=== PATIENT | female | born 1930 | race Caucasian/White ===

== ENCOUNTER 2017-02-16 17:27 | Inpatient (IN) | payer MEDICARE, BC ==
--- NOTE | 2017-02-16 17:38 | EDM.PDOC ---
ED HPI GENERAL MEDICAL PROBLEM - General Chief Complaint: Lower Extremity Injury/Pain Stated Complaint: right knee pain Time Seen by Provider: 02/16/17 17:30 Source of Information: Reports: Patient, EMS, EMS Notes Reviewed, Family (2 daughters, son), Old Records ([facility] chart/EMR) History Limitations: Reports: No Limitations - History of Present Illness INITIAL COMMENTS - FREE TEXT/NARRATIVE: The patient was brought to the emergency room via basic ambulance transfer secondary to severe knee pain, which occurred at home at about 15:00 hours this afternoon when she slipped off 1 step of her step stool at home. She has not been able to bear weight or ambulate since that time and did crawl to her own couch. Her daughter found her later this afternoon and did call the ambulance. The patient denies any head injury, headaches, visual changes, change in mental status, seizure activity, loss of consciousness, neck/back pain, paresthesias, neurological deficits, or other complaints or injuries. The patient denies any chest pain/pressure, heart flutter, dizziness, orthostasis, orthopnea, diaphoresis, paresthesias, recent decreased exercise tolerance, or any other anginal-type symptoms. No recent history of abdominal pain, heartburn, nausea, diarrhea, melena, gross hematochezia, or any food intolerance, including fatty foods, etc.. The patient also denies any recent fever, cough, wheezing, dyspnea , etc.. Onset: Today, Sudden Onset Date: 02/16/17 Onset Time: 15:00 Duration: Constant Location: Reports: Lower Extremity, Right. Denies: Head, Face, Neck, Chest, Abdomen, Back, Pelvis, Upper Extremity, Left, Upper Extremity, Right, Lower Extremity, Left, Generalized, Radiates to Quality: Reports: Sharp, Stabbing Severity: Severe Improves with: Reports: Rest Worsens with: Reports: Movement Context: Reports: Trauma (As above) Associated Symptoms: Denies: Confusion, Chest Pain, Cough, Diaphoresis, Fever/ Chills, Loss of Appetite, Malaise, Nausea/Vomiting, Seizure, Shortness of Breath , Syncope, Weakness Treatments HVAC JOURNEYMAN: Reports: Other (see below) (None) Right Knee Pain Score (Numeric/FACES): 8 - Related Data Allergies Allergy/AdvReac Type Severity Reaction Status Date / Time Penicillins Allergy Cannot Verified 10/06/14 09:26 Remember Home Meds: Home Meds Ascorbic Acid [Vitamin C] 1,000 mg PO 1200 02/16/17 [History] Aspirin [Low Dose Aspirin EC] 81 mg PO 1800 02/16/17 [History] Atenolol 25 mg PO DAILY 02/16/17 [History] Calcium Carbonate/Vitamin D3 [Calcium 600-Vit D3 500 Softgel] 1 each PO DAILY [History] Cholecalciferol (Vitamin D3) [Vitamin D3] 3,000 unit PO 1200 02/16/17 [History] Fenofibrate,Micronized [Fenofibrate] 134 mg PO DAILY 02/16/17 [History] Levothyroxine [Synthroid] 100 mcg PO ACBREAKFAST 02/16/17 [History] Pravastatin [Pravachol] 20 mg PO DAILY 02/16/17 [History] Sertraline [Zoloft] 50 mg PO DAILY 02/16/17 [History] Vitamin E 400 unit PO 1200 02/16/17 [History] amLODIPine [Norvasc] 5 mg PO DAILY 02/16/17 [History] Past Medical History HEENT History: Reports: Allergic Rhinitis, Cataract, Impaired Vision, Other ( See Below). Denies: Glaucoma, Hard of Hearing, Macular Degeneration, Retinal Detachment Other HEENT History: Patient wears glasses, seasonal allergies, bilateral cataracts with no surgery to this point Cardiovascular History: Reports: Arrhythmia, CAD, Heart Murmur, High Cholesterol , Hypertension, Pacemaker, Other (See Below). 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 Mild coronary artery disease with no previous history of AR, only mild bilateral carotid occlusive disease, mild aortic valve stenosis and mitral valve insufficiency by clinical exam, dyslipidemia Respiratory History: Reports: COPD, Intubation, Previous, Other (See Below). Denies: Asthma, PE, Pneumothorax, Sleep Apnea Other Respiratory History: COPD by chest x-ray Gastrointestinal History: Reports: None. Denies: Bowel Obstruction, Celiac Disease, Cholelithiasis, Chronic Constipation, Chronic Diarrhea, Fecal Incontinence, Gastritis, GERD, GI Bleed, Inflammatory Bowel Disease, Irritable Bowel Syndrome, PUD Genitourinary History: Reports: None. Denies: Acute Renal Failure, Chronic Renal Insuffiency, Renal Calculus, STD, Urinary Incontinence, UTI, Recurrent AGENTS' RECORDS CLERK History: Reports: Dysfunctional Uterine Bleeding, Fibroids, . Denies: Endometriosis, Spontaneous : 5 Para: 5 (Full term without complications during pregnancies or deliveries) LMP (Approximate): Menopausal (Surgical menopause) Musculoskeletal History: Reports: Arthritis, Back Pain, Chronic, Neck Pain, Chronic, Osteoarthritis, Osteoporosis, Other (See Below). Denies: Amputation, Fracture, Gout, RA, SLE Other Musculoskeletal History: Right-sided sciatica Neurological History: Reports: None. Denies: Alzheimers Disease, Cerebral Aneurysms, Concussion, CVA, Headaches, Chronic, Head Trauma, Migraines, MS, Neuropathy, Peripheral, Parkinson's, Seizure, TIA Psychiatric History: Reports: Anxiety, Depression. Denies: Abuse, Victim of, ADD, ADHD, Addiction, Psych Hospitalization(s), PTSD, Suicide Attempt, Suicidal Ideation Endocrine/Metabolic History: Reports: Hypothyroidism, Osteoporosis. Denies: Diabetes, Type I, Diabetes, Type II, IDDM Hematologic History: Reports: None. Denies: Anemia, Blood Transfusion(s), Iron Deficiency Immunologic History: Reports: None. Denies: AIDS, HIV, SLE Oncologic (Cancer) History: Reports: None. Denies: Basal Cell Carcinoma, Hodgkin's Lymphoma, Leukemia, Lymphoma, Malignant Melanoma, Non-Hodgkin's Lymphoma, Squamous Cell Carcinoma Dermatologic History: Reports: None. Denies: Eczema, Psoriasis - Infectious Disease History Infectious Disease History: Reports: Chicken Pox, Measles. Denies: C-Difficile , Meningitis, Mononucleosis, MRSA, Mumps, Pertussis (Whooping Cough), Rheumatic Fever, Rubella, Scarlet Fever, Shingles, VRE - Past Surgical History Head Surgeries/Procedures: Reports: None HEENT Surgical History: Reports: None, Oral Surgery, Other (See Below). Denies : Adenoidectomy, Cataract Surgery, Eye Surgery, Laser Surgery, LASIK, Myringotomy w Tube(s), Naso-Sinus Surgery, Tonsillectomy Other HEENT Surgeries/Procedures: [place] teeth extraction 4 in her 20s Cardiovascular Surgical History: Reports: Pacer, Other (See Below). Denies: Coronary Artery Bypass, Valve Replacement, Varicose, Vascular Surgery Other Cardiovascular Surgeries/Procedures: Show pacemaker placement in February 1999 with subsequent pacemaker replacements on 04/30/06 and then in November 2014 Respiratory Surgical History: Reports: None. Denies: Thoracentesis GI Surgical History: Reports: None. Denies: Appendectomy, Cholecystectomy, Colonoscopy, EGD, Hernia, Abdominal, Hernia, Inguinal, Hernia Repair/Other Female Surgical History: Reports: Hysterectomy, Salpingo-Oophorectomy, Other (See Below). Denies: Section, D&C, Tubal Ligation Other Female Surgeries/Procedures: Complete hysterectomy including bilateral salpingo-oophorectomy in her 40s secondary to uterine fibroids and dysfunctional uterine bleeding Endocrine Surgical History: Reports: None. Denies: Thyroid Biopsy Neurological Surgical History: Reports: None. Denies: C-Spine, Discectomy, Laminectomy, Lumbar Spine, Sacral Spine, Spinal Fusion, Vertebroplasty Musculoskeletal Surgical History: Reports: None. Denies: Arthroscopic Knee, Arthroscopic Procedure, Carpal Tunnel, Ganglion Cyst, Joint Replacement, ORIF, Shoulder Surgery Oncologic Surgical History: Reports: None Dermatological Surgical History: Reports: None - Past Imaging History Past Imaging History: Reports: Carotid US (Carotid artery Doppler studies last done 12/23/12 with previous evaluations and 12/09/09 and 12/21/05), CAT Scan (CT of the brain on 12/23/12, CT of the thoracic and lumbar spines on 09/07/06) Social & Family History - Family History HEENT: Reports: None. Denies: Cataract, Glaucoma, Macular Degeneration, Retinal Detachment Cardiac: Reports: Bypass, CAD, Congenital Septal Defect, Heart Failure, High Cholesterol, Hypertension, AR, Other (See Below). Denies: Afib, AICD, Aneurysm , Arrhythmia, Blood Clots/VTE/DVT, Pacemaker, PVD/COD, Syncope Other Cardiac Family History: 2 daughters with hypertension and hyperlipidemia, mother also with hypertension, brother with CABG and AR in his 70s, mother with fatal AR at age 69, brother with PTCA/stent and AR in his late 60s, son from heart complications/cardiomegaly from his Down syndrome at age 26 Respiratory: Reports: Asthma, COPD, Other (See Below). Denies: PE, Pneumothorax , Sleep Apnea Other Respiratory Family Hisory: Asthma in father and brother, sister with COPD with history of tobacco use, son with pulmonary fibrosis with no history of tobacco use GI: Denies: Celiac Disease, Cholelithiasis, Colon Polyps, GERD, GI bleed, Inflammatory Bowel Disease, Irritable Bowel Syndrome, PUD : Reports: Dialysis, Renal Disease/Insufficiency, Other (See Below). Denies: Renal Calculus Other Family History: Sister with fatal diabetic nephropathy requiring dialysis in her 80s, another sister with fatal renal disease in her 80s OBGYN: Reports: None. Denies: Endometriosis, Recurrent Spontaneous Musculoskeletal: Reports: None. Denies: Gout, RA, SLE Neurological: Reports: CVA, Other (See Below). Denies: Alzheimers Disease, Cerebral Aneurysms, Dementia, Migraines, MS, Parkinson's, Seizure, TIA Other Neurological Family History: Mother with multiple recurrent CVAs Psychiatric: Reports: None. Denies: Abuse, Victim of, ADD, ADHD, Anxiety, Autism, Depression, Psych Hospitalization(s), PTSD, Suicide Attempt Endocrine/Metabolic: Reports: Diabetes, type II, Hypothyroidism, IDDM, Other ( See Below) Other Endocrine/Metabolic Family History: Diabetes mellitus and hypothyroidism in 2 daughters and granddaughter, IDDM in sister with renal failure as above Hematologic: Reports: None. Denies: Anemia, B12 Deficiency, SLE Immunologic: Reports: None. Denies: AIDS, HIV, SLE Dermatologic: Reports: None. Denies: Eczema, Psoriasis Oncologic: Reports: Liver, Skin, Other (See Below). Denies: Colon, Leukemia, Uterine Other Oncologic Family History: Sister with fatal hepatic cancer at age 87 brother with melanoma Other Family History: Son with Down syndrome as above - Tobacco Use Smoking Status *Q: Never Smoker - Alcohol Use Days Per Week of Alcohol Use: 0 - Recreational Drug Use Recreational Drug Use: No Review of Systems - Review of Systems Review Of Systems: See Below Constitutional: Reports: No Symptoms. Denies: Chills, Fever, Weakness Eyes: Reports: Glasses. Denies: Blurred Vision, Vision Change Ears: Reports: No Symptoms. Denies: Dizziness, Pain, Tinnitus Nose: Reports: No Symptoms Mouth/Throat: Reports: No Symptoms. Denies: Loose Teeth Respiratory: Reports: No Symptoms. Denies: Shortness of Breath, Wheezing, Pleuritic Chest Pain, Cough Cardiovascular: Reports: No Symptoms. Denies: Chest Pain, Edema, Irregular Heart Rate, Lightheadedness, Palpitations, Syncope GI/Abdominal: Reports: No Symptoms. Denies: Abdominal Pain, Bloody Stool, Constipation, Diarrhea, Nausea, Vomiting Genitourinary: Reports: No Symptoms. Denies: Dysuria, Hematuria, Incontinence, Painful Urination, Vaginal Bleeding Musculoskeletal: Reports: Joint Pain (Right knee), Joint Swelling (Right knee). Denies: Neck Pain, Shoulder Pain, Arm Pain, Back Pain, Hand Pain, Leg Pain, Foot Pain, Muscle Pain, Muscle Stiffness Skin: Reports: No Symptoms. Denies: Diaphoresis, Bruising Neurological: Reports: Difficulty Walking (Secondary to knee pain). Denies: Confusion, Dizziness, Headache, Numbness, Paresthesia, Seizure, Syncope, Tingling, Weakness, Change in Speech Psychiatric: Reports: No Symptoms. Denies: Confusion, Depression, Anxiety, Agitation, Hallucinations ED EXAM, GENERAL - Physical Exam Exam: See Below Exam Limited By: No Limitations General Appearance: Alert, WD/WN, No Apparent Distress Eye Exam: Bilateral Eye: EOMI, Normal Inspection (No nystagmus; glasses), PERRL Ears: Normal External Exam, Normal Canal, Hearing Grossly Normal, Normal TMs Nose: Normal Inspection, Normal Mucosa, No Blood Throat/Mouth: Normal Inspection, Normal Lips, Normal Teeth, Normal Gums, Normal Oropharynx, Normal Voice, No Airway Compromise. No: Dysphagia, Perioral Cyanosis Head: Atraumatic, Normocephalic. No: Facial Swelling, Facial Tenderness, Sinus Tenderness Neck: Supple, Non-Tender, Full Range of Motion, Carotid Bruit (Mild Bilateral carotid bruits versus transmitted heart sounds). No: Lymphadenopathy (L), Lymphadenopathy (R), Thyromegaly Respiratory/Chest: No Respiratory Distress, Lungs Clear, Normal Breath Sounds, No Accessory Muscle Use, Chest Non-Tender. No: Pleural Rub, Retractions Cardiovascular: Normal Peripheral Pulses, Regular Rate, Rhythm, No Edema, No Gallop, No JVD, No Rub, Systolic Murmur (Mild 1/6 ADY of the aortic and mitral valves). No: Gallop/S3, Gallop/S4, Friction Rub Peripheral Pulses: 2+: Radial (L), Radial (R), Dorsalis Pedis (L), Dorsalis Pedis (R) GI/Abdominal: Normal Bowel Sounds, Soft, Non-Tender, No Organomegaly, No Distention, No Abnormal Bruit, No Mass, Pelvis Stable, Other (Obese, vertical midline incision from previous hysterectomy). No: Guarding (Female) Exam: Deferred Rectal (Female) Exam: Deferred Back Exam: Normal Inspection, Full Range of Motion. No: CVA Tenderness (L), CVA Tenderness (R), Muscle Spasm Extremities: No Pedal Edema, Normal Capillary Refill, Joint Swelling (Mild right knee effusion), Leg Pain (Severe left knee pain by palpation over the patella with no crepitation or deformity, secondary chest discomfort Lorin's, Alfreda's, and pivot shift could not be performed at no direct knee instability ), Limited Range of Motion (Secondary to knee pain). No: Charisse's Sign, Increased Warmth Neurological: Alert, Oriented, CN II-XII Intact, Normal Cognition, Normal Gait, Normal Reflexes (Negative Babinski's), No Motor/Sensory Deficits Psychiatric: Normal Affect, Normal Mood Skin Exam: Warm, Dry, Intact, Normal Color, No Rash. No: Diaphoretic, Ecchymosis, Wound/Incision Lymphatic: No Adenopathy Course - Vital Signs Last Recorded V/S: Last Vital Signs Temp 36.8 C 02/16/17 17:28 Pulse 67 02/16/17 17:28 Resp 20 02/16/17 17:28 BP 170/84 H 02/16/17 17:28 Pulse Ox 95 02/16/17 17:28 Vital Signs - 24 hr 02/16/17 17:28 Temperature [ 36.8 C Oral] Pulse, 67 Peripheral [ Left Pulse Oximetry] Respiratory 20 Rate Blood Pressure 170/84 H [Left Upper Arm ] O2 Sat by Pulse 95 Oximetry - Orders/Labs/Meds Orders: Active Orders 24 hr Category Date Time Status Peripheral IV Care [RC] . DIRECTED Care 02/16/17 17:43 Active Knee 3V Rt [CR] Stat Exams 02/16/17 17:38 Taken Sodium Chloride 0.9% [Saline Flush] Med 02/16/17 17:43 Active 10 ml FLUSH ASDIRECTED PRN Obtain Past Medical Record [OM.PC] Routine Oth 02/16/17 17:38 Active Peripheral IV Insertion Adult [OM.PC] Routine Oth 02/16/17 17:43 Ordered Medication Orders Sodium Chloride (Saline Flush) 10 ml FLUSH ASDIRECTED PRN PRN Reason: Keep Vein Open Labs: None Meds: Medications Generic Name Dose Route Start Last Admin Trade Name Freq PRN Reason Stop Dose Admin Sodium Chloride 10 ml 02/16/17 17:43 Saline Flush FLUSH ASDIRECTED PRN Keep Vein Open Discontinued Medications Generic Name Dose Route Start Last Admin Trade Name Freq PRN Reason Stop Dose Admin Hydromorphone HCl 1 mg 02/16/17 17:42 02/16/17 17:51 Dilaudid IVPUSH 02/16/17 17:43 1 mg ONETIME ONE Administration Ondansetron HCl 4 mg 02/16/17 17:42 02/16/17 17:53 Zofran IVPUSH 02/16/17 17:43 4 mg ONETIME ONE Administration - Radiology Interpretation Free Text/Narrative:: X-rays of the right knee, 3 views, shows evidence of possible posterior lateral tibial plateau fractures with additional possible medial plateau fracture with findings confirmed by means of telephone consultation with Dr. Peña, radiologist at [facility] at 18:30 p.m. Departure - Departure Time of Disposition: 19:35 Disposition: Admitted As Inpatient 65 Condition: Good Clinical Impression: Tibial plateau fracture, right, Hypertension, Osteoarthritis, COPD (chronic obstructive pulmonary disease), Coronary artery disease, Allergic rhinitis, Mixed anxiety depressive disorder - Discharge Information - Problem List & Annotations (1) Tibial plateau fracture, right SNOMED Code(s): 461716541 Code(s): S82.141A - DISPLACED BICONDYLAR FRACTURE OF RIGHT TIBIA, INIT Status: Acute Priority: High Current Visit: Yes Onset Date: 02/16/17 Annotation/Comment:: IV Dilaudid given in the emergency room with overall good control of her symptoms. Patient placed in a knee immobilizer. Per recommendations from the radiologist CT scan of the knee will be conducted in the a.m. Patient is not a candidate for an MRI secondary to her pacemaker. Orthopedic consultation as needed. Note that patient will have difficulty taking care of herself at home with consideration of swing bed placement after inpatient care for pain control. Physical therapy and occupational therapy in the a.m. Qualifiers: Encounter type: initial encounter Fracture type: closed Qualified Code(s) : S82.141A - Displaced bicondylar fracture of right tibia, initial encounter for closed fracture (2) Hypertension SNOMED Code(s): 91934933 Code(s): I10 - ESSENTIAL (PRIMARY) HYPERTENSION Status: Chronic Priority : Medium Current Visit: Yes Annotation/Comment:: Stable by history. Observe blood pressures closely with somewhat elevated blood pressures in the emergency room likely secondary to pain. Medication adjustments depending on her clinical course. Qualifiers: Hypertension type: essential hypertension Qualified Code(s): I10 - Essential (primary) hypertension (3) Coronary artery disease SNOMED Code(s): 76974315 Code(s): I25.10 - ATHSCL HEART DISEASE OF [place] CORONARY ARTERY W/O ANG PCTRS Status: Chronic Priority: Medium Current Visit: Yes Annotation/ Comment:: No recent chest pain or anginal type symptoms. Note status post previous third-degree block with multiple pacemaker placements as above Qualifiers: Coronary Disease-Associated Artery/Lesion type: [place] artery [place] vs. transplanted heart: [place] heart Associated angina: without angina Qualified Code(s): I25.10 - Atherosclerotic heart disease of [place] coronary artery without angina pectoris (4) COPD (chronic obstructive pulmonary disease) SNOMED Code(s): 18341143 Code(s): J44.9 - CHRONIC OBSTRUCTIVE PULMONARY DISEASE, UNSPECIFIED Status : Chronic Priority: Medium Current Visit: Yes Annotation/Comment:: Stable by history with no recent fever or bronchitic type symptoms Qualifiers: COPD type: emphysema Emphysema type: panlobular Qualified Code(s): J43.1 - Panlobular emphysema (5) Allergic rhinitis SNOMED Code(s): 20046100 Code(s): J30.9 - ALLERGIC RHINITIS, UNSPECIFIED Status: Chronic Priority : Medium Current Visit: Yes Annotation/Comment:: Stable by history Qualifiers: Chronicity: chronic Allergic rhinitis trigger: unspecified Allergic rhinitis seasonality: non-seasonal Qualified Code(s): J30.89 - Other allergic rhinitis (6) Osteoarthritis SNOMED Code(s): 840604342 Code(s): M19.90 - UNSPECIFIED OSTEOARTHRITIS, UNSPECIFIED SITE Status: Chronic Priority: Medium Current Visit: Yes Annotation/Comment:: Otherwise stable by history Qualifiers: Osteoarthritis location: multiple joints Osteoarthritis type: primary Qualified Code(s): M15.0 - Primary generalized (osteo)arthritis (7) Mixed anxiety depressive disorder SNOMED Code(s): 286049920 Code(s): F41.8 - OTHER SPECIFIED ANXIETY DISORDERS Status: Chronic Priority: Medium Current Visit: Yes Annotation/Comment:: Stable by history - Problem List Review Problem List Initiated/Reviewed/Updated: Yes - My Orders Last 24 Hours: My Active Orders 02/16/17 17:38 Knee 3V Rt [CR] Stat Obtain Past Medical Record [OM.PC] Routine 02/16/17 17:43 Peripheral IV Care [RC] . DIRECTED Sodium Chloride 0.9% [Saline Flush] 10 ml FLUSH ASDIRECTED PRN Peripheral IV Insertion Adult [OM.PC] Routine - Assessment/Plan Admission H&P: Please use this note as an admission H&P Last 24 Hours: My Active Orders 02/16/17 17:38 Knee 3V Rt [CR] Stat Obtain Past Medical Record [OM.PC] Routine 02/16/17 17:43 Peripheral IV Care [RC] . DIRECTED Sodium Chloride 0.9% [Saline Flush] 10 ml FLUSH ASDIRECTED PRN Peripheral IV Insertion Adult [OM.PC] Routine Assessment:: As above Plan: As above. Extensive precautions were given to the patient and her family, who are in agreement with the treatment plan. The patient will require about 3-4 days of inpatient/acute care secondary to multiple health problems as above. [facility] assumes care in the a.m. with additional blood work to be conducted at that time
[2017-02-16] MEDS ORDERED: HYDROmorphone 1 MG/ML Syringe IVPUSH ONE (17:42)
[2017-02-16] MEDS ORDERED: Ondansetron 4 MG/2 ML SDV IVPUSH ONE (17:42)
[2017-02-16] MEDS ORDERED: Albuterol/Ipratropium 3.0-0.5 MG/3 ML Neb Soln NEB PRN (20:49)
[2017-02-16] MEDS ORDERED: Albuterol 0.083% 2.5 MG/3 ML Neb Soln INH PRN (20:49)
[2017-02-16] MEDS ORDERED: Sodium Chloride 0.9% 10 ML Syringe FLUSH PRN (20:49)
[2017-02-16] MEDS: traMADol 50 MG Tab PO PRN (22:19)
[2017-02-16] MEDS: Acetaminophen 325 MG Tab PO PRN (22:20)
[2017-02-16] MEDS ORDERED: Ondansetron 4 MG/2 ML SDV IVPUSH PRN (23:40)
[2017-02-17] MEDS: HYDROmorphone 1 MG/ML Syringe IVPUSH PRN ×2 (03:23→09:23)
[2017-02-17] MEDS: Acetaminophen 325 MG Tab PO PRN ×3 (06:04→19:33)
[2017-02-17] MEDS: traMADol 50 MG Tab PO PRN ×3 (06:05→19:34)
[2017-02-17] MEDS: Levothyroxine 100 MCG Tab PO SCH (07:37)
[2017-02-17] MEDS ORDERED: Atenolol 25 MG Tab PO SCH (08:00)
[2017-02-17] MEDS ORDERED: Fenofibrate,Micronized 134 MG Cap PO SCH (08:00)
[2017-02-17] MEDS ORDERED: Pravastatin 20 MG Tab PO SCH (08:00)
[2017-02-17] MEDS ORDERED: Sertraline 50 MG Tab PO SCH (08:00)
[2017-02-17] MEDS ORDERED: amLODIPine 5 MG Tab PO SCH (08:00)
[2017-02-17] MEDS: Calcium Carbonate/Vitamin D3 1500 MG-400 Units Tab PO SCH (08:14)
[2017-02-17] MEDS: Sodium Chloride 0.9% 10 ML Syringe FLUSH PRN ×4 (08:16→21:17)
[2017-02-17] MEDS: Cholecalciferol (Vitamin D3) 1,000 Unit Tab PO SCH (11:51)
[2017-02-17] MEDS ORDERED: Pantoprazole 40 MG Vial IVPUSH ONE (13:30)
[2017-02-17] MEDS ORDERED: Enalaprilat 1.25 MG/ML SDV IVPUSH ONE ×2 (13:30→16:45)
[2017-02-17] MEDS ORDERED: fentaNYL 100 MCG/2 ML SDV IVPUSH PRN (14:00)
[2017-02-17] MEDS: Ketorolac 15 MG/ML SDV IVPUSH SCH ×2 (14:07→21:16)
--- NOTE | 2017-02-17 16:15 | PCM.PN ---
- General Info Date of Service: 02/17/17 Functional Status: Reports: Other (pain in right knee) - Review of Systems General: Reports: No Symptoms HEENT: Reports: No Symptoms Pulmonary: Reports: No Symptoms Cardiovascular: Reports: No Symptoms Gastrointestinal: Reports: No Symptoms Genitourinary: Reports: No Symptoms Musculoskeletal: Reports: Leg Pain (right), Joint Pain (right knee) Skin: Reports: No Symptoms Neurological: Reports: No Symptoms Psychiatric: Reports: Anxiety - Patient Data Vitals - Most Recent: Last Vital Signs Temp 96 F 02/17/17 12:00 Pulse 61 02/17/17 12:00 Resp 22 H 02/17/17 06:05 BP 200/78 H 02/17/17 14:08 Pulse Ox 95 02/17/17 12:00 Weight - Most Recent: 130 lb I&O - Last 24 Hours: Intake & Output 02/17/17 02/17/17 02/17/17 06:59 14:59 22:59 Intake Total 1100 Output Total 550 Balance -550 1100 Lab Results Last 24 Hours: Laboratory Results - last 24 hr 02/17/17 02/17/17 Range/Units 07:10 07:10 WBC 12.8 H (4.0-10.2) K/uL RBC 4.72 (3.77-5.09) M/uL Hgb 13.9 (11.7-15.5) g/dL Hct 43.0 (34.0-46.0) % MCV 91.1 (84.0-98.0) fL MCH 29.4 (28.2-33.3) pg MCHC 32.3 (31.7-36.0) g/dL RDW 13.8 (11.2-14.1) % Plt Count 265 (150-350) K/uL Neut % (Auto) 73.5 (45.0-80.0) % Lymph % (Auto) 16.2 (10.0-50.0) % [place] % (Auto) 9.5 (2.0-14.0) % Eos % (Auto) 0.6 (0.0-5.0) % Baso % (Auto) 0.2 (0.0-2.0) % Neut # (Auto) 9.42 H (1.40-7.00) K/uL Lymph # (Auto) 2.08 (0.50-3.50) K/uL [place] # (Auto) 1.22 H (0.00-1.00) K/uL Eos # (Auto) 0.08 (0.00-0.50) K/uL Baso # (Auto) 0.02 (0.00-0.20) K/uL Sodium 137 (136-145) mmol/L Potassium 4.4 (3.5-5.1) mmol/L Chloride 101 (98-107) mmol/L Carbon Dioxide 28.1 (21.0-32.0) mmol/L BUN 35 H (7-18) mg/dL Creatinine 1.35 H (0.51-1.17) mg/dL Est Cr Clr Drug Dosing 21.09 mL/min Estimated GFR (MDRD) 37 mL/min Glucose 133 H (74-106) mg/dL Uric Acid 4.8 (2.6-7.2) mg/dL Calcium 9.8 (8.5-10.1) mg/dL Magnesium 1.7 L (1.8-2.4) mg/dL Total Bilirubin 0.4 (0.2-1.0) mg/dL AST 24 (15-37) U/L ALT 24 (12-78) U/L Alkaline Phosphatase 43 L (46-116) IU/L C-Reactive Protein 2.0 H (<=0.9) mg/dL Total Protein 7.7 (6.4-8.2) g/dL Albumin 3.7 (3.4-5.0) g/dL Med Orders - Current: Current Medications Acetaminophen (Tylenol) 650 mg PO Q4H PRN PRN Reason: Pain (Mild 1-3)/fever Last Admin: 02/17/17 13:37 Dose: 650 mg Albuterol (Proventil Neb Soln) 2.5 mg INH Q2H PRN PRN Reason: SHORTNESS OF BREATH Albuterol/Ipratropium (Duoneb 3.0-0.5 Mg/3 Ml) 3 ml NEB Q4HRRT PRN PRN Reason: Dyspnea Amlodipine Besylate (Norvasc) 5 mg PO DAILY [facility] Last Admin: 02/17/17 08:15 Dose: 5 mg Atenolol (Tenormin) 25 mg PO DAILY [facility] Last Admin: 02/17/17 08:15 Dose: 25 mg Calcium Carbonate (Caltrate 600+D 1500 Mg-400 Units) 1 tab PO DAILY [facility] Last Admin: 02/17/17 08:14 Dose: 1 tab Cholecalciferol (Vitamin D3) 3,000 units PO DAILY@1200 [facility] Last Admin: 02/17/17 11:51 Dose: 3,000 units Fentanyl (Sublimaze) 25 mcg IVPUSH Q4H PRN PRN Reason: Pain Ketorolac Tromethamine (Toradol) 15 mg IVPUSH Q8H [facility] Stop: 02/22/17 13:20 Last Admin: 02/17/17 14:07 Dose: 15 mg Levothyroxine Sodium (Synthroid) 100 mcg PO ACBREAKFAST [facility] Last Admin: 02/17/17 07:37 Dose: 100 mcg Ondansetron HCl (Zofran) 4 mg IVPUSH Q6H PRN PRN Reason: Nausea/Vomiting Last Admin: 02/17/17 09:23 Dose: 4 mg Pantoprazole Sodium (Protonix Iv) 40 mg IVPUSH DAILY [facility] Sodium Chloride (Saline Flush) 10 ml FLUSH ASDIRECTED PRN PRN Reason: Keep Vein Open Last Admin: 02/17/17 14:14 Dose: 10 ml Sodium Chloride (Saline Flush) 10 ml FLUSH Q12HR [facility] Temazepam (Restoril) 15 mg PO BEDTIME PRN PRN Reason: Insomnia Tramadol HCl (Ultram) 50 mg PO Q6H PRN PRN Reason: Pain (moderate 4-6) Last Admin: 02/17/17 13:36 Dose: 50 mg Discontinued Medications Aspirin (Halfprin) 81 mg PO 1800 [facility] Enalaprilat (Vasotec Iv) 0.625 mg IVPUSH ONETIME ONE Stop: 02/17/17 13:31 Last Admin: 02/17/17 14:08 Dose: 0.625 mg Fenofibrate (Fenofibrate) 134 mg PO DAILY [facility] Last Admin: 02/17/17 08:15 Dose: 134 mg Hydromorphone HCl (Dilaudid) 1 mg IVPUSH ONETIME ONE Stop: 02/16/17 17:43 Last Admin: 02/16/17 17:51 Dose: 1 mg Hydromorphone HCl (Dilaudid) 1 mg IVPUSH Q6H PRN PRN Reason: Pain (severe 7-10) Last Admin: 02/17/17 09:23 Dose: 1 mg Ondansetron HCl (Zofran) 4 mg IVPUSH ONETIME ONE Stop: 02/16/17 17:43 Last Admin: 02/16/17 17:53 Dose: 4 mg Pantoprazole Sodium (Protonix Iv) 40 mg IVPUSH ONETIME ONE Stop: 02/17/17 13:31 Last Admin: 02/17/17 14:08 Dose: 40 mg Pravastatin Sodium (Pravachol) 20 mg PO DAILY [facility] Last Admin: 02/17/17 08:15 Dose: 20 mg Sertraline HCl (Zoloft) 50 mg PO DAILY [facility] Last Admin: 02/17/17 08:15 Dose: 50 mg Sodium Chloride (Saline Flush) 10 ml FLUSH Q12H PRN PRN Reason: Keep Vein Open - Exam General: Alert, Cooperative, Mild Distress HEENT: Mucous Membr. Moist/[place] Neck: Trachea Midline, No JVD Lungs: Normal Respiratory Effort Cardiovascular: Regular Rate, Regular Rhythm GI/Abdominal Exam: Soft, Non-Tender (Female) Exam: Deferred Back Exam: Normal Inspection, Other (kyphosis) Extremities: No Pedal Edema, Leg Pain (right) Skin: Warm, Dry, Intact Neurological: No New Focal Deficit Psy/Mental Status: Alert, Normal Affect, Normal Mood - Problem List & Annotations (1) Tibial plateau fracture, right SNOMED Code(s): 566017032 Code(s): S82.141A - DISPLACED BICONDYLAR FRACTURE OF RIGHT TIBIA, INIT Status: Acute Priority: High Current Visit: Yes Onset Date: 02/16/17 Qualifiers: Encounter type: initial encounter Fracture type: closed Qualified Code(s) : S82.141A - Displaced bicondylar fracture of right tibia, initial encounter for closed fracture Annotation/Comment:: IV Dilaudid given in the emergency room with overall good control of her symptoms. Patient placed in a knee immobilizer. Per recommendations from the radiologist CT scan of the knee will be conducted in the a.m. Patient is not a candidate for an MRI secondary to her pacemaker. Orthopedic consultation as needed. Note that patient will have difficulty taking care of herself at home with consideration of swing bed placement after inpatient care for pain control. Physical therapy and occupational therapy in the a.m. (2) COPD (chronic obstructive pulmonary disease) SNOMED Code(s): 73035501 Code(s): J44.9 - CHRONIC OBSTRUCTIVE PULMONARY DISEASE, UNSPECIFIED Status : Chronic Priority: Medium Current Visit: Yes Qualifiers: COPD type: emphysema Emphysema type: panlobular Qualified Code(s): J43.1 - Panlobular emphysema Annotation/Comment:: Stable by history with no recent fever or bronchitic type symptoms (3) Coronary artery disease SNOMED Code(s): 41602817 Code(s): I25.10 - ATHSCL HEART DISEASE OF [place] CORONARY ARTERY W/O ANG PCTRS Status: Chronic Priority: Medium Current Visit: Yes Qualifiers: Coronary Disease-Associated Artery/Lesion type: [place] artery [place] vs. transplanted heart: [place] heart Associated angina: without angina Qualified Code(s): I25.10 - Atherosclerotic heart disease of [place] coronary artery without angina pectoris Annotation/Comment:: No recent chest pain or anginal type symptoms. 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 Observe blood pressures closely with somewhat elevated blood pressures in the emergency room likely secondary to pain. Medication adjustments depending on her clinical course. (5) Mixed anxiety depressive disorder SNOMED Code(s): 374689199 Code(s): F41.8 - OTHER SPECIFIED ANXIETY DISORDERS Status: Chronic Priority: Medium Current Visit: Yes Annotation/Comment:: Stable by history (6) Osteoarthritis SNOMED Code(s): 939089821 Code(s): M19.90 - UNSPECIFIED OSTEOARTHRITIS, UNSPECIFIED SITE Status: Chronic Priority: Medium Current Visit: Yes Qualifiers: Osteoarthritis location: multiple joints Osteoarthritis type: primary Qualified Code(s): M15.0 - Primary generalized (osteo)arthritis Annotation/Comment:: Otherwise stable by history (7) Right ankle sprain SNOMED Code(s): 98979161 Code(s): S93.401A - SPRAIN OF UNSPECIFIED LIGAMENT OF RIGHT ANKLE, INIT ENCNTR Status: Acute Current Visit: No - Problem List Review Problem List Initiated/Reviewed/Updated: Yes - My Orders Last 24 Hours: My Active Orders 02/17/17 14:00 Ketorolac [Toradol] 15 mg IVPUSH Q8H fentaNYL [Sublimaze] 25 mcg IVPUSH Q4H PRN 02/17/17 20:00 Sodium Chloride 0.9% [Saline Flush] 10 ml FLUSH Q12HR 02/18/17 05:11 CBC WITH AUTO DIFF [HEME] DAILY CMP [COMPREHENSIVE METABOLIC PN,CMP] [CHEM] DAILY CRP [C-REACTIVE PROTEIN] [CHEM] Routine MAGNESIUM [CHEM] Routine 02/18/17 08:00 Pantoprazole [ProTONIX IV] 40 mg IVPUSH DAILY 02/19/17 05:11 CBC WITH AUTO DIFF [HEME] DAILY CMP [COMPREHENSIVE METABOLIC PN,CMP] [CHEM] DAILY 02/20/17 05:11 CBC WITH AUTO DIFF [HEME] DAILY CMP [COMPREHENSIVE METABOLIC PN,CMP] [CHEM] DAILY - Plan Plan:: 02/17/17 Brent Butler MD Pain persists right knee area. CT confirms tibial plateau fracture. Start scheduled toradal. PT-OT consultation. Monitor blood pressure, need GI bleed prophylaxis, and monitor renal status.
[2017-02-17] MEDS ORDERED: Aspirin 81 MG Tab.EC PO SCH (18:00)
[2017-02-17] MEDS: amLODIPine 5 MG Tab PO SCH (19:35)
[2017-02-17] MEDS: Sodium Chloride 0.9% 10 ML Syringe FLUSH SCH (19:40)
[2017-02-17] MEDS: Temazepam 15 MG Cap PO PRN (21:17)
[2017-02-18] MEDS: Ketorolac 15 MG/ML SDV IVPUSH SCH ×3 (05:30→22:04)
[2017-02-18] MEDS: Metoprolol Succinate 25 MG Tab.ER PO SCH (08:35)
[2017-02-18] MEDS: Pantoprazole 40 MG Vial IVPUSH SCH (08:35)
[2017-02-18] MEDS: Levothyroxine 100 MCG Tab PO SCH (08:36)
[2017-02-18] MEDS: Calcium Carbonate/Vitamin D3 1500 MG-400 Units Tab PO SCH (08:36)
[2017-02-18] MEDS: amLODIPine 5 MG Tab PO SCH ×2 (08:36→20:18)
[2017-02-18] MEDS: Sodium Chloride 0.9% 10 ML Syringe FLUSH SCH ×2 (08:37→20:18)
[2017-02-18] MEDS: Cholecalciferol (Vitamin D3) 1,000 Unit Tab PO SCH (12:05)
[2017-02-18] MEDS: Acetaminophen 325 MG Tab PO PRN (12:09)
[2017-02-18] MEDS: traMADol 50 MG Tab PO PRN (12:09)
--- NOTE | 2017-02-18 13:34 | PCM.PN ---
- General Info Date of Service: 02/18/17 Functional Status: Reports: Other (pain improving with medications) - Review of Systems General: Reports: No Symptoms HEENT: Reports: No Symptoms Pulmonary: Reports: No Symptoms Cardiovascular: Reports: No Symptoms Gastrointestinal: Reports: No Symptoms Genitourinary: Reports: No Symptoms Musculoskeletal: Reports: Leg Pain (right) Skin: Reports: No Symptoms Neurological: Reports: No Symptoms Psychiatric: Reports: Anxiety - Patient Data Vitals - Most Recent: Last Vital Signs Temp 96.5 F 02/18/17 12:00 Pulse 65 02/18/17 12:00 Resp 18 02/18/17 08:00 BP 145/65 H 02/18/17 12:00 Pulse Ox 95 02/18/17 12:00 Weight - Most Recent: 130 lb I&O - Last 24 Hours: Intake & Output 02/17/17 02/18/17 02/18/17 22:59 06:59 14:59 Intake Total 120 1440 Output Total 150 Balance -30 1440 Lab Results Last 24 Hours: Laboratory Results - last 24 hr 02/18/17 02/18/17 Range/Units 07:15 07:15 WBC 12.6 H (4.0-10.2) K/uL RBC 4.35 (3.77-5.09) M/uL Hgb 12.9 (11.7-15.5) g/dL Hct 40.2 (34.0-46.0) % MCV 92.4 (84.0-98.0) fL MCH 29.7 (28.2-33.3) pg MCHC 32.1 (31.7-36.0) g/dL RDW 14.0 (11.2-14.1) % Plt Count 234 (150-350) K/uL Neut % (Auto) 74.7 (45.0-80.0) % Lymph % (Auto) 11.8 (10.0-50.0) % [place] % (Auto) 11.2 (2.0-14.0) % Eos % (Auto) 2.2 (0.0-5.0) % Baso % (Auto) 0.1 (0.0-2.0) % Neut # (Auto) 9.40 H (1.40-7.00) K/uL Lymph # (Auto) 1.49 (0.50-3.50) K/uL [place] # (Auto) 1.41 H (0.00-1.00) K/uL Eos # (Auto) 0.28 (0.00-0.50) K/uL Baso # (Auto) 0.01 (0.00-0.20) K/uL Sodium 138 (136-145) mmol/L Potassium 4.3 (3.5-5.1) mmol/L Chloride 103 (98-107) mmol/L Carbon Dioxide 28.4 (21.0-32.0) mmol/L BUN 31 H (7-18) mg/dL Creatinine 1.40 H (0.51-1.17) mg/dL Est Cr Clr Drug Dosing 20.33 mL/min Estimated GFR (MDRD) 36 mL/min Glucose 117 H (74-106) mg/dL Calcium 9.8 (8.5-10.1) mg/dL Magnesium 1.7 L (1.8-2.4) mg/dL Total Bilirubin 0.5 (0.2-1.0) mg/dL AST 22 (15-37) U/L ALT 20 (12-78) U/L Alkaline Phosphatase 40 L (46-116) IU/L C-Reactive Protein 13.6 H (<=0.9) mg/dL Total Protein 6.9 (6.4-8.2) g/dL Albumin 3.0 L (3.4-5.0) g/dL Med Orders - Current: Current Medications Acetaminophen (Tylenol) 650 mg PO Q4H PRN PRN Reason: Pain (Mild 1-3)/fever Last Admin: 02/18/17 12:09 Dose: 650 mg Albuterol (Proventil Neb Soln) 2.5 mg INH Q2H PRN PRN Reason: SHORTNESS OF BREATH Albuterol/Ipratropium (Duoneb 3.0-0.5 Mg/3 Ml) 3 ml NEB Q4HRRT PRN PRN Reason: Dyspnea Last Admin: 02/17/17 21:16 Dose: 3 ml Amlodipine Besylate (Norvasc) 5 mg PO Q12HR [facility] Last Admin: 02/18/17 08:36 Dose: 5 mg Calcium Carbonate (Caltrate 600+D 1500 Mg-400 Units) 1 tab PO DAILY [facility] Last Admin: 02/18/17 08:36 Dose: 1 tab Cholecalciferol (Vitamin D3) 3,000 units PO DAILY@1200 [facility] Last Admin: 02/18/17 12:05 Dose: 3,000 units Fentanyl (Sublimaze) 25 mcg IVPUSH Q4H PRN PRN Reason: Pain Last Admin: 02/17/17 17:25 Dose: 25 mcg Ketorolac Tromethamine (Toradol) 15 mg IVPUSH Q8H [facility] Stop: 02/22/17 13:20 Last Admin: 02/18/17 05:30 Dose: 15 mg Levothyroxine Sodium (Synthroid) 100 mcg PO ACBREAKFAST [facility] Last Admin: 02/18/17 08:36 Dose: 100 mcg Metoprolol Succinate (Toprol Xl) 25 mg PO DAILY [facility] Last Admin: 02/18/17 08:35 Dose: 25 mg Ondansetron HCl (Zofran) 4 mg IVPUSH Q6H PRN PRN Reason: Nausea/Vomiting Last Admin: 02/17/17 09:23 Dose: 4 mg Pantoprazole Sodium (Protonix Iv) 40 mg IVPUSH DAILY [facility] Last Admin: 02/18/17 08:35 Dose: 40 mg Sodium Chloride (Saline Flush) 10 ml FLUSH ASDIRECTED PRN PRN Reason: Keep Vein Open Last Admin: 02/17/17 21:17 Dose: 10 ml Sodium Chloride (Saline Flush) 10 ml FLUSH Q12HR [facility] Last Admin: 02/18/17 08:37 Dose: 10 ml Temazepam (Restoril) 15 mg PO BEDTIME PRN PRN Reason: Insomnia Last Admin: 02/17/17 21:17 Dose: 15 mg Tramadol HCl (Ultram) 50 mg PO Q6H PRN PRN Reason: Pain (moderate 4-6) Last Admin: 02/18/17 12:09 Dose: 50 mg Discontinued Medications Amlodipine Besylate (Norvasc) 5 mg PO DAILY [facility] Last Admin: 02/17/17 08:15 Dose: 5 mg Aspirin (Halfprin) 81 mg PO 1800 [facility] Atenolol (Tenormin) 25 mg PO DAILY [facility] Last Admin: 02/17/17 08:15 Dose: 25 mg Enalaprilat (Vasotec Iv) 0.625 mg IVPUSH ONETIME ONE Stop: 02/17/17 13:31 Last Admin: 02/17/17 14:08 Dose: 0.625 mg Enalaprilat (Vasotec Iv) 0.625 mg IVPUSH ONETIME ONE Stop: 02/17/17 16:46 Last Admin: 02/17/17 17:08 Dose: Not Given Fenofibrate (Fenofibrate) 134 mg PO DAILY [facility] Last Admin: 02/17/17 08:15 Dose: 134 mg Hydromorphone HCl (Dilaudid) 1 mg IVPUSH ONETIME ONE Stop: 02/16/17 17:43 Last Admin: 02/16/17 17:51 Dose: 1 mg Hydromorphone HCl (Dilaudid) 1 mg IVPUSH Q6H PRN PRN Reason: Pain (severe 7-10) Last Admin: 02/17/17 09:23 Dose: 1 mg Ondansetron HCl (Zofran) 4 mg IVPUSH ONETIME ONE Stop: 02/16/17 17:43 Last Admin: 02/16/17 17:53 Dose: 4 mg Pantoprazole Sodium (Protonix Iv) 40 mg IVPUSH ONETIME ONE Stop: 02/17/17 13:31 Last Admin: 02/17/17 14:08 Dose: 40 mg Pravastatin Sodium (Pravachol) 20 mg PO DAILY [facility] Last Admin: 02/17/17 08:15 Dose: 20 mg Sertraline HCl (Zoloft) 50 mg PO DAILY [facility] Last Admin: 02/17/17 08:15 Dose: 50 mg Sodium Chloride (Saline Flush) 10 ml FLUSH Q12H PRN PRN Reason: Keep Vein Open - Exam General: Alert, Cooperative HEENT: Mucous Membr. Moist/[place] Neck: Trachea Midline, No JVD Lungs: Clear to Auscultation, Normal Respiratory Effort Cardiovascular: Regular Rate, Regular Rhythm GI/Abdominal Exam: Soft, Non-Tender, No Distention (Female) Exam: Deferred Back Exam: Other (kyphosis) Extremities: No Pedal Edema, Joint Swelling (right knee), Leg Pain (right) Skin: Warm, Dry, Intact Neurological: No New Focal Deficit Psy/Mental Status: Alert, Normal Affect, Normal Mood - Problem List & Annotations (1) Tibial plateau fracture, right SNOMED Code(s): 424509336 Code(s): S82.141A - DISPLACED BICONDYLAR FRACTURE OF RIGHT TIBIA, INIT Status: Acute Priority: High Current Visit: Yes Onset Date: 02/16/17 Qualifiers: Encounter type: initial encounter Fracture type: closed Qualified Code(s) : S82.141A - Displaced bicondylar fracture of right tibia, initial encounter for closed fracture Annotation/Comment:: IV Dilaudid given in the emergency room with overall good control of her symptoms. Patient placed in a knee immobilizer. Per recommendations from the radiologist CT scan of the knee will be conducted in the a.m. Patient is not a candidate for an MRI secondary to her pacemaker. Orthopedic consultation as needed. Note that patient will have difficulty taking care of herself at home with consideration of swing bed placement after inpatient care for pain control. Physical therapy and occupational therapy in the a.m. (2) COPD (chronic obstructive pulmonary disease) SNOMED Code(s): 84615155 Code(s): J44.9 - CHRONIC OBSTRUCTIVE PULMONARY DISEASE, UNSPECIFIED Status : Chronic Priority: Medium Current Visit: Yes Qualifiers: COPD type: emphysema Emphysema type: panlobular Qualified Code(s): J43.1 - Panlobular emphysema Annotation/Comment:: Stable by history with no recent fever or bronchitic type symptoms (3) Coronary artery disease SNOMED Code(s): 32694023 Code(s): I25.10 - ATHSCL HEART DISEASE OF [place] CORONARY ARTERY W/O ANG PCTRS Status: Chronic Priority: Medium Current Visit: Yes Qualifiers: Coronary Disease-Associated Artery/Lesion type: [place] artery [place] vs. transplanted heart: [place] heart Associated angina: without angina Qualified Code(s): I25.10 - Atherosclerotic heart disease of [place] coronary artery without angina pectoris Annotation/Comment:: No recent chest pain or anginal type symptoms. 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 Observe blood pressures closely with somewhat elevated blood pressures in the emergency room likely secondary to pain. Medication adjustments depending on her clinical course. (5) Mixed anxiety depressive disorder SNOMED Code(s): 957531829 Code(s): F41.8 - OTHER SPECIFIED ANXIETY DISORDERS Status: Chronic Priority: Medium Current Visit: Yes Annotation/Comment:: Stable by history (6) Osteoarthritis SNOMED Code(s): 967373589 Code(s): M19.90 - UNSPECIFIED OSTEOARTHRITIS, UNSPECIFIED SITE Status: Chronic Priority: Medium Current Visit: Yes Qualifiers: Osteoarthritis location: multiple joints Osteoarthritis type: primary Qualified Code(s): M15.0 - Primary generalized (osteo)arthritis Annotation/Comment:: Otherwise stable by history (7) Right ankle sprain SNOMED Code(s): 13021888 Code(s): S93.401A - SPRAIN OF UNSPECIFIED LIGAMENT OF RIGHT ANKLE, INIT ENCNTR Status: Acute Current Visit: No - Problem List Review Problem List Initiated/Reviewed/Updated: Yes - My Orders Last 24 Hours: My Active Orders 02/17/17 14:00 Ketorolac [Toradol] 15 mg IVPUSH Q8H fentaNYL [Sublimaze] 25 mcg IVPUSH Q4H PRN 02/17/17 20:00 Sodium Chloride 0.9% [Saline Flush] 10 ml FLUSH Q12HR amLODIPine [Norvasc] 5 mg PO Q12HR 02/18/17 08:00 Metoprolol Succinate [Toprol XL] 25 mg PO DAILY Pantoprazole [ProTONIX IV] 40 mg IVPUSH DAILY 02/19/17 05:11 CBC WITH AUTO DIFF [HEME] DAILY CMP [COMPREHENSIVE METABOLIC PN,CMP] [CHEM] DAILY 02/20/17 05:11 CBC WITH AUTO DIFF [HEME] DAILY CMP [COMPREHENSIVE METABOLIC PN,CMP] [CHEM] DAILY - Plan Plan:: 02/17/17 Brent Butler MD Pain persists right knee area. CT confirms tibial plateau fracture. Start scheduled toradal. PT-OT consultation. Monitor blood pressure, need GI bleed prophylaxis, and monitor renal status. 02/18/17 Brent Butler MD Pain in right leg is some improved on scheduled IV toradol. She states she also has sciatica pain right leg. Will start gabapentin. PT consulting.
[2017-02-18] MEDS: Sodium Chloride 0.9% 10 ML Syringe FLUSH PRN ×2 (13:36→22:05)
[2017-02-18] MEDS: Gabapentin 100 MG Cap PO SCH (20:18)
[2017-02-18] MEDS: Temazepam 15 MG Cap PO PRN (22:05)
[2017-02-19] MEDS: Sodium Chloride 0.9% 10 ML Syringe FLUSH PRN ×2 (06:27→14:28)
[2017-02-19] MEDS: Ketorolac 15 MG/ML SDV IVPUSH SCH ×3 (06:28→21:46)
[2017-02-19] MEDS: Levothyroxine 100 MCG Tab PO SCH (08:34)
[2017-02-19] MEDS: Metoprolol Succinate 25 MG Tab.ER PO SCH (08:35)
[2017-02-19] MEDS: amLODIPine 5 MG Tab PO SCH ×2 (08:35→19:16)
[2017-02-19] MEDS: Calcium Carbonate/Vitamin D3 1500 MG-400 Units Tab PO SCH (08:36)
[2017-02-19] MEDS: Pantoprazole 40 MG Vial IVPUSH SCH (08:36)
[2017-02-19] MEDS: Sodium Chloride 0.9% 10 ML Syringe FLUSH SCH ×2 (08:36→19:17)
[2017-02-19] MEDS: Furosemide 20 MG Tab PO SCH (12:28)
[2017-02-19] MEDS: Cholecalciferol (Vitamin D3) 1,000 Unit Tab PO SCH (12:28)
[2017-02-19] MEDS: Lisinopril 10 MG Tab PO SCH (12:29)
--- NOTE | 2017-02-19 12:29 | PCM.PN ---
- General Info Date of Service: 02/19/17 Functional Status: Reports: Other (pain persists, IV toradol helping ease pain) - Review of Systems General: Reports: No Symptoms HEENT: Reports: No Symptoms Pulmonary: Reports: No Symptoms Cardiovascular: Reports: No Symptoms Gastrointestinal: Reports: No Symptoms Genitourinary: Reports: No Symptoms Musculoskeletal: Reports: Leg Pain, Joint Pain, Joint Swelling Skin: Reports: No Symptoms Neurological: Reports: No Symptoms Psychiatric: Reports: No Symptoms - Patient Data Vitals - Most Recent: Last Vital Signs Temp 97.2 F 02/19/17 07:34 Pulse 65 02/19/17 08:35 Resp 15 02/19/17 07:34 BP 163/54 H 02/19/17 08:35 Pulse Ox 92 L 02/19/17 07:34 Weight - Most Recent: 126 lb 8 oz I&O - Last 24 Hours: Intake & Output 02/18/17 02/19/17 02/19/17 22:59 06:59 14:59 Intake Total 160 120 Output Total 200 350 Balance -40 -230 Lab Results Last 24 Hours: Laboratory Results - last 24 hr 02/19/17 02/19/17 Range/Units 07:15 07:15 WBC 12.5 H (4.0-10.2) K/uL RBC 4.23 (3.77-5.09) M/uL Hgb 12.4 (11.7-15.5) g/dL Hct 39.2 (34.0-46.0) % MCV 92.7 (84.0-98.0) fL MCH 29.3 (28.2-33.3) pg MCHC 31.6 L (31.7-36.0) g/dL RDW 14.2 H (11.2-14.1) % Plt Count 245 (150-350) K/uL Neut % (Auto) 74.0 (45.0-80.0) % Lymph % (Auto) 14.0 (10.0-50.0) % [place] % (Auto) 8.9 (2.0-14.0) % Eos % (Auto) 2.7 (0.0-5.0) % Baso % (Auto) 0.4 (0.0-2.0) % Neut # (Auto) 9.27 H (1.40-7.00) K/uL Lymph # (Auto) 1.75 (0.50-3.50) K/uL [place] # (Auto) 1.11 H (0.00-1.00) K/uL Eos # (Auto) 0.34 (0.00-0.50) K/uL Baso # (Auto) 0.05 (0.00-0.20) K/uL Sodium 139 (136-145) mmol/L Potassium 4.6 (3.5-5.1) mmol/L Chloride 105 (98-107) mmol/L Carbon Dioxide 26.6 (21.0-32.0) mmol/L BUN 36 H (7-18) mg/dL Creatinine 1.39 H (0.51-1.17) mg/dL Est Cr Clr Drug Dosing 20.48 mL/min Estimated GFR (MDRD) 36 mL/min Glucose 115 H (74-106) mg/dL Calcium 9.4 (8.5-10.1) mg/dL Total Bilirubin 0.5 (0.2-1.0) mg/dL AST 20 (15-37) U/L ALT 21 (12-78) U/L Alkaline Phosphatase 41 L (46-116) IU/L Total Protein 7.1 (6.4-8.2) g/dL Albumin 2.7 L (3.4-5.0) g/dL Med Orders - Current: Current Medications Acetaminophen (Tylenol) 650 mg PO Q4H PRN PRN Reason: Pain (Mild 1-3)/fever Last Admin: 02/18/17 12:09 Dose: 650 mg Albuterol (Proventil Neb Soln) 2.5 mg INH Q2H PRN PRN Reason: SHORTNESS OF BREATH Albuterol/Ipratropium (Duoneb 3.0-0.5 Mg/3 Ml) 3 ml NEB Q4HRRT PRN PRN Reason: Dyspnea Last Admin: 02/17/17 21:16 Dose: 3 ml Amlodipine Besylate (Norvasc) 5 mg PO Q12HR [facility] Last Admin: 02/19/17 08:35 Dose: 5 mg Calcium Carbonate (Caltrate 600+D 1500 Mg-400 Units) 1 tab PO DAILY [facility]DA Last Admin: 02/19/17 08:36 Dose: 1 tab Cholecalciferol (Vitamin D3) 3,000 units PO DAILY@1200 [facility] Last Admin: 02/18/17 12:05 Dose: 3,000 units Fentanyl (Sublimaze) 25 mcg IVPUSH Q4H PRN PRN Reason: Pain Last Admin: 02/17/17 17:25 Dose: 25 mcg Furosemide (Lasix) 20 mg PO DAILY@1200 [facility] Gabapentin (Neurontin) 100 mg PO BEDTIME [facility] Last Admin: 02/18/17 20:18 Dose: 100 mg Ketorolac Tromethamine (Toradol) 15 mg IVPUSH Q8H [facility] Stop: 02/22/17 13:20 Last Admin: 02/19/17 06:28 Dose: 15 mg Levothyroxine Sodium (Synthroid) 100 mcg PO ACBREAKFAST [facility] Last Admin: 02/19/17 08:34 Dose: 100 mcg Lisinopril (Prinivil) 10 mg PO DAILY [facility] Metoprolol Succinate (Toprol Xl) 25 mg PO DAILY [facility] Last Admin: 02/19/17 08:35 Dose: 25 mg Ondansetron HCl (Zofran) 4 mg IVPUSH Q6H PRN PRN Reason: Nausea/Vomiting Last Admin: 02/17/17 09:23 Dose: 4 mg Pantoprazole Sodium (Protonix Iv) 40 mg IVPUSH DAILY [facility] Last Admin: 02/19/17 08:36 Dose: 40 mg Sodium Chloride (Saline Flush) 10 ml FLUSH ASDIRECTED PRN PRN Reason: Keep Vein Open Last Admin: 02/19/17 06:27 Dose: 10 ml Sodium Chloride (Saline Flush) 10 ml FLUSH Q12HR [facility] Last Admin: 02/19/17 08:36 Dose: 10 ml Temazepam (Restoril) 15 mg PO BEDTIME PRN PRN Reason: Insomnia Last Admin: 02/18/17 22:05 Dose: 15 mg Tramadol HCl (Ultram) 50 mg PO Q6H PRN PRN Reason: Pain (moderate 4-6) Last Admin: 02/18/17 12:09 Dose: 50 mg Discontinued Medications Amlodipine Besylate (Norvasc) 5 mg PO DAILY [facility] Last Admin: 02/17/17 08:15 Dose: 5 mg Aspirin (Halfprin) 81 mg PO 1800 [facility] Atenolol (Tenormin) 25 mg PO DAILY [facility] Last Admin: 02/17/17 08:15 Dose: 25 mg Enalaprilat (Vasotec Iv) 0.625 mg IVPUSH ONETIME ONE Stop: 02/17/17 13:31 Last Admin: 02/17/17 14:08 Dose: 0.625 mg Enalaprilat (Vasotec Iv) 0.625 mg IVPUSH ONETIME ONE Stop: 02/17/17 16:46 Last Admin: 02/17/17 17:08 Dose: Not Given Fenofibrate (Fenofibrate) 134 mg PO DAILY [facility] Last Admin: 02/17/17 08:15 Dose: 134 mg Hydromorphone HCl (Dilaudid) 1 mg IVPUSH ONETIME ONE Stop: 02/16/17 17:43 Last Admin: 02/16/17 17:51 Dose: 1 mg Hydromorphone HCl (Dilaudid) 1 mg IVPUSH Q6H PRN PRN Reason: Pain (severe 7-10) Last Admin: 02/17/17 09:23 Dose: 1 mg Ondansetron HCl (Zofran) 4 mg IVPUSH ONETIME ONE Stop: 02/16/17 17:43 Last Admin: 02/16/17 17:53 Dose: 4 mg Pantoprazole Sodium (Protonix Iv) 40 mg IVPUSH ONETIME ONE Stop: 02/17/17 13:31 Last Admin: 02/17/17 14:08 Dose: 40 mg Pravastatin Sodium (Pravachol) 20 mg PO DAILY [facility] Last Admin: 02/17/17 08:15 Dose: 20 mg Sertraline HCl (Zoloft) 50 mg PO DAILY [facility] Last Admin: 02/17/17 08:15 Dose: 50 mg Sodium Chloride (Saline Flush) 10 ml FLUSH Q12H PRN PRN Reason: Keep Vein Open - Exam General: Alert, Cooperative, Mild Distress HEENT: Pupils Equal, Pupils Reactive, EOMI, Mucous Membr. Moist/[place] Neck: Supple Lungs: Clear to Auscultation, Normal Respiratory Effort Cardiovascular: Regular Rate, Regular Rhythm GI/Abdominal Exam: Soft, Non-Tender, No Distention (Female) Exam: Deferred Back Exam: Other (kyphosis) Extremities: Normal Inspection, No Pedal Edema, Other (right knee swelling and pain) Skin: Warm, Dry, Intact, Ecchymosis (from IV starts) Neurological: No New Focal Deficit Psy/Mental Status: Alert, Normal Affect, Normal Mood, Anxious (improved) - Problem List & Annotations (1) Tibial plateau fracture, right SNOMED Code(s): 838704446 Code(s): S82.141A - DISPLACED BICONDYLAR FRACTURE OF RIGHT TIBIA, INIT Status: Acute Priority: High Current Visit: Yes Onset Date: 02/16/17 Qualifiers: Encounter type: initial encounter Fracture type: closed Qualified Code(s) : S82.141A - Displaced bicondylar fracture of right tibia, initial encounter for closed fracture Annotation/Comment:: IV Dilaudid given in the emergency room with overall good control of her symptoms. Patient placed in a knee immobilizer. Per recommendations from the radiologist CT scan of the knee will be conducted in the a.m. Patient is not a candidate for an MRI secondary to her pacemaker. Orthopedic consultation as needed. Note that patient will have difficulty taking care of herself at home with consideration of swing bed placement after inpatient care for pain control. Physical therapy and occupational therapy in the a.m. (2) COPD (chronic obstructive pulmonary disease) SNOMED Code(s): 81627434 Code(s): J44.9 - CHRONIC OBSTRUCTIVE PULMONARY DISEASE, UNSPECIFIED Status : Chronic Priority: Medium Current Visit: Yes Qualifiers: COPD type: emphysema Emphysema type: panlobular Qualified Code(s): J43.1 - Panlobular emphysema Annotation/Comment:: Stable by history with no recent fever or bronchitic type symptoms (3) Coronary artery disease SNOMED Code(s): 87319850 Code(s): I25.10 - ATHSCL HEART DISEASE OF [place] CORONARY ARTERY W/O ANG PCTRS Status: Chronic Priority: Medium Current Visit: Yes Qualifiers: Coronary Disease-Associated Artery/Lesion type: [place] artery [place] vs. transplanted heart: [place] heart Associated angina: without angina Qualified Code(s): I25.10 - Atherosclerotic heart disease of [place] coronary artery without angina pectoris Annotation/Comment:: No recent chest pain or anginal type symptoms. Note status post previous third-degree block with multiple pacemaker placements as above (4) Hypertension SNOMED Code(s): 05662785 Code(s): I10 - ESSENTIAL (PRIMARY) HYPERTENSION Status: Chronic Priority : Medium Current Visit: Yes Qualifiers: Hypertension type: essential hypertension Qualified Code(s): I10 - Essential (primary) hypertension Annotation/Comment:: Stable by history. Observe blood pressures closely with somewhat elevated blood pressures in the emergency room likely secondary to pain. Medication adjustments depending on her clinical course. (5) Mixed anxiety depressive disorder SNOMED Code(s): 789948453 Code(s): F41.8 - OTHER SPECIFIED ANXIETY DISORDERS Status: Chronic Priority: Medium Current Visit: Yes Annotation/Comment:: Stable by history (6) Osteoarthritis SNOMED Code(s): 123687791 Code(s): M19.90 - UNSPECIFIED OSTEOARTHRITIS, UNSPECIFIED SITE Status: Chronic Priority: Medium Current Visit: Yes Qualifiers: Osteoarthritis location: multiple joints Osteoarthritis type: primary Qualified Code(s): M15.0 - Primary generalized (osteo)arthritis Annotation/Comment:: Otherwise stable by history (7) Right ankle sprain SNOMED Code(s): 31251939 Code(s): S93.401A - SPRAIN OF UNSPECIFIED LIGAMENT OF RIGHT ANKLE, INIT ENCNTR Status: Acute Current Visit: No - Problem List Review Problem List Initiated/Reviewed/Updated: Yes - My Orders Last 24 Hours: My Active Orders 02/18/17 20:00 Gabapentin [Neurontin] 100 mg PO BEDTIME 02/19/17 12:00 Furosemide [Lasix] 20 mg PO DAILY@1200 Lisinopril [Prinivil] 10 mg PO DAILY 02/20/17 05:11 CBC WITH AUTO DIFF [HEME] DAILY CMP [COMPREHENSIVE METABOLIC PN,CMP] [CHEM] DAILY - Plan Plan:: 02/17/17 Brent Butler MD Pain persists right knee area. CT confirms tibial plateau fracture. Start scheduled toradal. PT-OT consultation. Monitor blood pressure, need GI bleed prophylaxis, and monitor renal status. 02/18/17 Brent Butler MD Pain in right leg is some improved on scheduled IV toradol. She states she also has sciatica pain right leg. Will start gabapentin. PT consulting. 02/19/17 Brent Butler MD Blood pressure some improvement but will adjust medications and continue to monitor. Kidney status remaining stable. No evidence of any active bleeding. Continue IV scheduled toradol.
[2017-02-19] MEDS: Gabapentin 100 MG Cap PO SCH (19:16)
[2017-02-19] MEDS: Acetaminophen 325 MG Tab PO PRN (19:16)
[2017-02-19] MEDS: Temazepam 15 MG Cap PO PRN (21:47)
[2017-02-20] MEDS: Sodium Chloride 0.9% 10 ML Syringe FLUSH PRN ×2 (05:51→13:45)
[2017-02-20] MEDS: Ketorolac 15 MG/ML SDV IVPUSH SCH ×2 (05:51→13:38)
[2017-02-20] MEDS: Levothyroxine 100 MCG Tab PO SCH (06:34)
[2017-02-20] MEDS: Calcium Carbonate/Vitamin D3 1500 MG-400 Units Tab PO SCH (07:06)
[2017-02-20] MEDS: amLODIPine 5 MG Tab PO SCH (07:06)
[2017-02-20] MEDS: Lisinopril 10 MG Tab PO SCH (07:07)
[2017-02-20] MEDS: Sodium Chloride 0.9% 10 ML Syringe FLUSH SCH (07:07)
[2017-02-20] MEDS: Pantoprazole 40 MG Vial IVPUSH SCH (07:07)
[2017-02-20] MEDS: Metoprolol Succinate 25 MG Tab.ER PO SCH (07:07)
[2017-02-20] MEDS ORDERED: Magnesium Hydroxide 400 MG/5 ML Susp 30 ML Cup PO PRN ×2 (07:40→15:38)
[2017-02-20] MEDS: Cholecalciferol (Vitamin D3) 1,000 Unit Tab PO SCH (11:35)
[2017-02-20] MEDS: Furosemide 20 MG Tab PO SCH (11:35)
--- NOTE | 2017-02-20 13:50 | PCM.PN ---
- General Info Date of Service: 02/20/17 Functional Status: Reports: Pain Controlled - Review of Systems General: Reports: No Symptoms HEENT: Reports: No Symptoms Pulmonary: Reports: No Symptoms Cardiovascular: Reports: No Symptoms Gastrointestinal: Reports: Constipation Genitourinary: Reports: No Symptoms Musculoskeletal: Reports: Leg Pain, Joint Pain (right knee) Skin: Reports: No Symptoms Neurological: Reports: No Symptoms Psychiatric: Reports: No Symptoms - Patient Data Vitals - Most Recent: Last Vital Signs Temp 98.6 F 02/20/17 11:14 Pulse 62 02/20/17 11:14 Resp 14 02/20/17 11:14 BP 157/54 H 02/20/17 11:14 Pulse Ox 95 02/20/17 11:14 Weight - Most Recent: 136 lb 8 oz I&O - Last 24 Hours: Intake & Output 02/19/17 02/20/17 02/20/17 22:59 06:59 14:59 Intake Total 300 590 Output Total 650 Balance -350 590 Lab Results Last 24 Hours: Laboratory Results - last 24 hr 02/20/17 02/20/17 Range/Units 07:10 07:10 WBC 10.3 H (4.0-10.2) K/uL RBC 3.78 (3.77-5.09) M/uL Hgb 11.3 L (11.7-15.5) g/dL Hct 35.3 (34.0-46.0) % MCV 93.4 (84.0-98.0) fL MCH 29.9 (28.2-33.3) pg MCHC 32.0 (31.7-36.0) g/dL RDW 14.1 (11.2-14.1) % Plt Count 225 (150-350) K/uL Neut % (Auto) 71.9 (45.0-80.0) % Lymph % (Auto) 13.3 (10.0-50.0) % [place] % (Auto) 9.0 (2.0-14.0) % Eos % (Auto) 5.5 H (0.0-5.0) % Baso % (Auto) 0.3 (0.0-2.0) % Neut # (Auto) 7.38 H (1.40-7.00) K/uL Lymph # (Auto) 1.37 (0.50-3.50) K/uL [place] # (Auto) 0.93 (0.00-1.00) K/uL Eos # (Auto) 0.57 H (0.00-0.50) K/uL Baso # (Auto) 0.03 (0.00-0.20) K/uL Sodium 139 (136-145) mmol/L Potassium 4.5 (3.5-5.1) mmol/L Chloride 104 (98-107) mmol/L Carbon Dioxide 27.2 (21.0-32.0) mmol/L BUN 41 H (7-18) mg/dL Creatinine 1.53 H (0.51-1.17) mg/dL Est Cr Clr Drug Dosing 18.61 mL/min Estimated GFR (MDRD) 32 mL/min Glucose 98 (74-106) mg/dL Calcium 9.2 (8.5-10.1) mg/dL Total Bilirubin 0.5 (0.2-1.0) mg/dL AST 18 (15-37) U/L ALT 18 (12-78) U/L Alkaline Phosphatase 43 L (46-116) IU/L Total Protein 6.6 (6.4-8.2) g/dL Albumin 2.5 L (3.4-5.0) g/dL [place] Results Last 24 Hours: Microbiology 02/19/17 21:50 Stool Occult Blood ([place]) - Final Stool / Feces NEGATIVE OCCULT BLOOD Med Orders - Current: Current Medications Acetaminophen (Tylenol) 650 mg PO Q4H PRN PRN Reason: Pain (Mild 1-3)/fever Last Admin: 02/19/17 19:16 Dose: 650 mg Albuterol (Proventil Neb Soln) 2.5 mg INH Q2H PRN PRN Reason: SHORTNESS OF BREATH Albuterol/Ipratropium (Duoneb 3.0-0.5 Mg/3 Ml) 3 ml NEB Q4HRRT PRN PRN Reason: Dyspnea Last Admin: 02/17/17 21:16 Dose: 3 ml Amlodipine Besylate (Norvasc) 5 mg PO Q12HR [facility] Last Admin: 02/20/17 07:06 Dose: 5 mg Calcium Carbonate (Caltrate 600+D 1500 Mg-400 Units) 1 tab PO DAILY [facility] Last Admin: 02/20/17 07:06 Dose: 1 tab Cholecalciferol (Vitamin D3) 3,000 units PO DAILY@1200 [facility] Last Admin: 02/20/17 11:35 Dose: 3,000 units Fentanyl (Sublimaze) 25 mcg IVPUSH Q4H PRN PRN Reason: Pain Last Admin: 02/17/17 17:25 Dose: 25 mcg Furosemide (Lasix) 20 mg PO DAILY@1200 [facility] Last Admin: 02/20/17 11:35 Dose: 20 mg Gabapentin (Neurontin) 100 mg PO BEDTIME [facility] Last Admin: 02/19/17 19:16 Dose: 100 mg Ketorolac Tromethamine (Toradol) 15 mg IVPUSH Q8H [facility] Stop: 02/22/17 13:20 Last Admin: 02/20/17 13:38 Dose: 15 mg Levothyroxine Sodium (Synthroid) 100 mcg PO ACBREAKFAST [facility] Last Admin: 02/20/17 06:34 Dose: 100 mcg Lisinopril (Prinivil) 10 mg PO DAILY [facility] Last Admin: 02/20/17 07:07 Dose: 10 mg Magnesium Hydroxide (Milk Of Magnesia) 30 ml PO ASDIRECTED PRN PRN Reason: Constipation Last Admin: 02/20/17 07:51 Dose: 30 ml Metoprolol Succinate (Toprol Xl) 25 mg PO DAILY [facility] Last Admin: 02/20/17 07:07 Dose: 25 mg Ondansetron HCl (Zofran) 4 mg IVPUSH Q6H PRN PRN Reason: Nausea/Vomiting Last Admin: 02/17/17 09:23 Dose: 4 mg Pantoprazole Sodium (Protonix Iv) 40 mg IVPUSH DAILY [facility] Last Admin: 02/20/17 07:07 Dose: 40 mg Sodium Chloride (Saline Flush) 10 ml FLUSH ASDIRECTED PRN PRN Reason: Keep Vein Open Last Admin: 02/20/17 13:45 Dose: 10 ml Sodium Chloride (Saline Flush) 10 ml FLUSH Q12HR [facility] Last Admin: 02/20/17 07:07 Dose: 10 ml Temazepam (Restoril) 15 mg PO BEDTIME PRN PRN Reason: Insomnia Last Admin: 02/19/17 21:47 Dose: 15 mg Tramadol HCl (Ultram) 50 mg PO Q6H PRN PRN Reason: Pain (moderate 4-6) Last Admin: 02/18/17 12:09 Dose: 50 mg Discontinued Medications Amlodipine Besylate (Norvasc) 5 mg PO DAILY [facility] Last Admin: 02/17/17 08:15 Dose: 5 mg Aspirin (Halfprin) 81 mg PO 1800 [facility] Atenolol (Tenormin) 25 mg PO DAILY [facility] Last Admin: 02/17/17 08:15 Dose: 25 mg Enalaprilat (Vasotec Iv) 0.625 mg IVPUSH ONETIME ONE Stop: 02/17/17 13:31 Last Admin: 02/17/17 14:08 Dose: 0.625 mg Enalaprilat (Vasotec Iv) 0.625 mg IVPUSH ONETIME ONE Stop: 02/17/17 16:46 Last Admin: 02/17/17 17:08 Dose: Not Given Fenofibrate (Fenofibrate) 134 mg PO DAILY [facility] Last Admin: 02/17/17 08:15 Dose: 134 mg Hydromorphone HCl (Dilaudid) 1 mg IVPUSH ONETIME ONE Stop: 02/16/17 17:43 Last Admin: 02/16/17 17:51 Dose: 1 mg Hydromorphone HCl (Dilaudid) 1 mg IVPUSH Q6H PRN PRN Reason: Pain (severe 7-10) Last Admin: 02/17/17 09:23 Dose: 1 mg Ondansetron HCl (Zofran) 4 mg IVPUSH ONETIME ONE Stop: 02/16/17 17:43 Last Admin: 02/16/17 17:53 Dose: 4 mg Pantoprazole Sodium (Protonix Iv) 40 mg IVPUSH ONETIME ONE Stop: 02/17/17 13:31 Last Admin: 02/17/17 14:08 Dose: 40 mg Pravastatin Sodium (Pravachol) 20 mg PO DAILY [facility] Last Admin: 02/17/17 08:15 Dose: 20 mg Sertraline HCl (Zoloft) 50 mg PO DAILY [facility] Last Admin: 02/17/17 08:15 Dose: 50 mg Sodium Chloride (Saline Flush) 10 ml FLUSH Q12H PRN PRN Reason: Keep Vein Open - Exam General: Alert, Cooperative, No Acute Distress HEENT: Mucous Membr. Moist/[place] Neck: Trachea Midline, No JVD Lungs: Clear to Auscultation, Normal Respiratory Effort Cardiovascular: Regular Rate, Regular Rhythm GI/Abdominal Exam: Soft, Non-Tender, No Distention (Female) Exam: Deferred Back Exam: Other (kyphosis) Extremities: No Pedal Edema, Joint Swelling (right knee) Skin: Warm, Dry, Intact, Ecchymosis (at IV starts) Neurological: No New Focal Deficit Psy/Mental Status: Alert, Normal Affect, Normal Mood - Problem List & Annotations (1) Tibial plateau fracture, right SNOMED Code(s): 313333891 Code(s): S82.141A - DISPLACED BICONDYLAR FRACTURE OF RIGHT TIBIA, INIT Status: Acute Priority: High Current Visit: Yes Onset Date: 02/16/17 Qualifiers: Encounter type: initial encounter Fracture type: closed Qualified Code(s) : S82.141A - Displaced bicondylar fracture of right tibia, initial encounter for closed fracture Annotation/Comment:: IV Dilaudid given in the emergency room with overall good control of her symptoms. Patient placed in a knee immobilizer. Per recommendations from the radiologist CT scan of the knee will be conducted in the a.m. Patient is not a candidate for an MRI secondary to her pacemaker. Orthopedic consultation as needed. Note that patient will have difficulty taking care of herself at home with consideration of swing bed placement after inpatient care for pain control. Physical therapy and occupational therapy in the a.m. (2) COPD (chronic obstructive pulmonary disease) SNOMED Code(s): 80932434 Code(s): J44.9 - CHRONIC OBSTRUCTIVE PULMONARY DISEASE, UNSPECIFIED Status : Chronic Priority: Medium Current Visit: Yes Qualifiers: COPD type: emphysema Emphysema type: panlobular Qualified Code(s): J43.1 - Panlobular emphysema Annotation/Comment:: Stable by history with no recent fever or bronchitic type symptoms (3) Coronary artery disease SNOMED Code(s): 11506240 Code(s): I25.10 - ATHSCL HEART DISEASE OF [place] CORONARY ARTERY W/O ANG PCTRS Status: Chronic Priority: Medium Current Visit: Yes Qualifiers: Coronary Disease-Associated Artery/Lesion type: [place] artery [place] vs. transplanted heart: [place] heart Associated angina: without angina Qualified Code(s): I25.10 - Atherosclerotic heart disease of [place] coronary artery without angina pectoris Annotation/Comment:: No recent chest pain or anginal type symptoms. Note status post previous third-degree block with multiple pacemaker placements as above (4) Hypertension SNOMED Code(s): 83112726 Code(s): I10 - ESSENTIAL (PRIMARY) HYPERTENSION Status: Chronic Priority : Medium Current Visit: Yes Qualifiers: Hypertension type: essential hypertension Qualified Code(s): I10 - Essential (primary) hypertension Annotation/Comment:: Stable by history. Observe blood pressures closely with somewhat elevated blood pressures in the emergency room likely secondary to pain. Medication adjustments depending on her clinical course. (5) Mixed anxiety depressive disorder SNOMED Code(s): 712852522 Code(s): F41.8 - OTHER SPECIFIED ANXIETY DISORDERS Status: Chronic Priority: Medium Current Visit: Yes Annotation/Comment:: Stable by history (6) Osteoarthritis SNOMED Code(s): 854052492 Code(s): M19.90 - UNSPECIFIED OSTEOARTHRITIS, UNSPECIFIED SITE Status: Chronic Priority: Medium Current Visit: Yes Qualifiers: Osteoarthritis location: multiple joints Osteoarthritis type: primary Qualified Code(s): M15.0 - Primary generalized (osteo)arthritis Annotation/Comment:: Otherwise stable by history (7) Right ankle sprain SNOMED Code(s): 37799891 Code(s): S93.401A - SPRAIN OF UNSPECIFIED LIGAMENT OF RIGHT ANKLE, INIT ENCNTR Status: Acute Current Visit: No - Problem List Review Problem List Initiated/Reviewed/Updated: Yes - My Orders Last 24 Hours: My Active Orders 02/20/17 07:40 Magnesium Hydroxide [Milk of Magnesia] 30 ml PO ASDIRECTED PRN - Plan Plan:: 02/17/17 Brent Butler MD Pain persists right knee area. CT confirms tibial plateau fracture. Start scheduled toradal. PT-OT consultation. Monitor blood pressure, need GI bleed prophylaxis, and monitor renal status. 02/18/17 Brent Butler MD Pain in right leg is some improved on scheduled IV toradol. She states she also has sciatica pain right leg. Will start gabapentin. PT consulting. 02/19/17 Brent Butler MD Blood pressure some improvement but will adjust medications and continue to monitor. Kidney status remaining stable. No evidence of any active bleeding. Continue IV scheduled toradol. 02/20/17 Brent Butler MD Pain much improvement today. Renal status mild decrease. Will stop scheduled IV toradol. Admit to swing bed for continued PT-OT.
--- NOTE | 2017-02-20 13:58 | PCM.DCSUM1 ---
Discharge Summary - Discharge Data Discharge Date: 02/20/17 Discharge Disposition: DC/Tfer W/I Hosp To Swing 61 Condition: Good - Discharge Diagnosis/Problem(s) (1) Tibial plateau fracture, right SNOMED Code(s): 954838118 ICD Code: S82.141A - DISPLACED BICONDYLAR FRACTURE OF RIGHT TIBIA, INIT Status: Acute Priority: High Current Visit: Yes Onset Date: 02/16/17 Problem Details: IV Dilaudid given in the emergency room with overall good control of her symptoms. Patient placed in a knee immobilizer. Per recommendations from the radiologist CT scan of the knee will be conducted in the a.m. Patient is not a candidate for an MRI secondary to her pacemaker. Orthopedic consultation as needed. Note that patient will have difficulty taking care of herself at home with consideration of swing bed placement after inpatient care for pain control. Physical therapy and occupational therapy in the a.m. Qualifiers: Encounter type: initial encounter Fracture type: closed Qualified Code(s) : S82.141A - Displaced bicondylar fracture of right tibia, initial encounter for closed fracture (2) COPD (chronic obstructive pulmonary disease) SNOMED Code(s): 88907510 ICD Code: J44.9 - CHRONIC OBSTRUCTIVE PULMONARY DISEASE, UNSPECIFIED Status : Chronic Priority: Medium Current Visit: Yes Problem Details: Stable by history with no recent fever or bronchitic type symptoms Qualifiers: COPD type: emphysema Emphysema type: panlobular Qualified Code(s): J43.1 - Panlobular emphysema (3) Coronary artery disease SNOMED Code(s): 92157785 ICD Code: I25.10 - ATHSCL HEART DISEASE OF [place] CORONARY ARTERY W/O ANG PCTRS Status: Chronic Priority: Medium Current Visit: Yes Problem Details: No recent chest pain or anginal type symptoms. Note status post previous third-degree block with multiple pacemaker placements as above Qualifiers: Coronary Disease-Associated Artery/Lesion type: [place] artery [place] vs. transplanted heart: [place] heart Associated angina: without angina Qualified Code(s): I25.10 - Atherosclerotic heart disease of [place] coronary artery without angina pectoris (4) Hypertension SNOMED Code(s): 23487608 ICD Code: I10 - ESSENTIAL (PRIMARY) HYPERTENSION Status: Chronic Priority : Medium Current Visit: Yes Problem Details: Stable by history. Observe blood pressures closely with somewhat elevated blood pressures in the emergency room likely secondary to pain. Medication adjustments depending on her clinical course. Qualifiers: Hypertension type: essential hypertension Qualified Code(s): I10 - Essential (primary) hypertension (5) Mixed anxiety depressive disorder SNOMED Code(s): 560791593 ICD Code: F41.8 - OTHER SPECIFIED ANXIETY DISORDERS Status: Chronic Priority: Medium Current Visit: Yes Problem Details: Stable by history (6) Osteoarthritis SNOMED Code(s): 546390819 ICD Code: M19.90 - UNSPECIFIED OSTEOARTHRITIS, UNSPECIFIED SITE Status: Chronic Priority: Medium Current Visit: Yes Problem Details: Otherwise stable by history Qualifiers: Osteoarthritis location: multiple joints Osteoarthritis type: primary Qualified Code(s): M15.0 - Primary generalized (osteo)arthritis (7) Right ankle sprain SNOMED Code(s): 65766506 ICD Code: S93.401A - SPRAIN OF UNSPECIFIED LIGAMENT OF RIGHT ANKLE, INIT ENCNTR Status: Acute Current Visit: No - Patient Summary/Data Consults: Consultations 02/17/17 05:11 OT Evaluation and Treatment [CONS] Routine PT Evaluation and Treatment [CONS] Routine - Patient Instructions Diet: Regular Diet as Tolerated Activity: Apply Ice, Non Weight Bearing (on the right) Showering/Bathing: May Shower Other/Special Instructions: 02/20/17 Right knee immobilizer on majority of the time. May have off for shower or bath. May have off short periods of time when in bed. - Discharge Plan Home Medications: Home Meds Ascorbic Acid [Vitamin C] 1,000 mg PO 1200 02/16/17 [History] Aspirin [Low Dose Aspirin EC] 81 mg PO 1800 02/16/17 [History] Atenolol 25 mg PO DAILY 02/16/17 [History] Calcium Carbonate/Vitamin D3 [Calcium 600-Vit D3 500 Softgel] 1 each PO DAILY [History] Cholecalciferol (Vitamin D3) [Vitamin D3] 3,000 unit PO 1200 02/16/17 [History] Fenofibrate,Micronized [Fenofibrate] 134 mg PO DAILY 02/16/17 [History] Levothyroxine [Synthroid] 100 mcg PO ACBREAKFAST 02/16/17 [History] Pravastatin [Pravachol] 20 mg PO DAILY 02/16/17 [History] Sertraline [Zoloft] 50 mg PO DAILY 02/16/17 [History] Vitamin E 400 unit PO 1200 02/16/17 [History] amLODIPine [Norvasc] 5 mg PO DAILY 02/16/17 [History] Patient Handouts: Furosemide tablets, Gabapentin capsules or tablets, Ketorolac injection, Pantoprazole injection, Lisinopril tablets, Nondisplaced Tibial Plateau Fracture Forms: ED Department Discharge Referrals: Nela Camacho PA [Primary Care Provider] - - Discharge Summary/Plan Comment DC Time >30 min.: No Discharge Summary/Plan Comment: 02/20/17 Brent Butler MD She needs swing bed status for continued PT-OT. - Patient Data Vitals - Most Recent: Last Vital Signs Temp 98.6 F 02/20/17 11:14 Pulse 62 02/20/17 11:14 Resp 14 02/20/17 11:14 BP 157/54 H 02/20/17 11:14 Pulse Ox 95 02/20/17 11:14 Weight - Most Recent: 136 lb 8 oz I&O - Last 24 hours: Intake & Output 02/19/17 02/20/17 02/20/17 22:59 06:59 14:59 Intake Total 300 590 Output Total 650 Balance -350 590 Lab Results - Last 24 hrs: Laboratory Results - last 24 hr 02/20/17 02/20/17 Range/Units 07:10 07:10 WBC 10.3 H (4.0-10.2) K/uL RBC 3.78 (3.77-5.09) M/uL Hgb 11.3 L (11.7-15.5) g/dL Hct 35.3 (34.0-46.0) % MCV 93.4 (84.0-98.0) fL MCH 29.9 (28.2-33.3) pg MCHC 32.0 (31.7-36.0) g/dL RDW 14.1 (11.2-14.1) % Plt Count 225 (150-350) K/uL Neut % (Auto) 71.9 (45.0-80.0) % Lymph % (Auto) 13.3 (10.0-50.0) % [place] % (Auto) 9.0 (2.0-14.0) % Eos % (Auto) 5.5 H (0.0-5.0) % Baso % (Auto) 0.3 (0.0-2.0) % Neut # (Auto) 7.38 H (1.40-7.00) K/uL Lymph # (Auto) 1.37 (0.50-3.50) K/uL [place] # (Auto) 0.93 (0.00-1.00) K/uL Eos # (Auto) 0.57 H (0.00-0.50) K/uL Baso # (Auto) 0.03 (0.00-0.20) K/uL Sodium 139 (136-145) mmol/L Potassium 4.5 (3.5-5.1) mmol/L Chloride 104 (98-107) mmol/L Carbon Dioxide 27.2 (21.0-32.0) mmol/L BUN 41 H (7-18) mg/dL Creatinine 1.53 H (0.51-1.17) mg/dL Est Cr Clr Drug Dosing 18.61 mL/min Estimated GFR (MDRD) 32 mL/min Glucose 98 (74-106) mg/dL Calcium 9.2 (8.5-10.1) mg/dL Total Bilirubin 0.5 (0.2-1.0) mg/dL AST 18 (15-37) U/L ALT 18 (12-78) U/L Alkaline Phosphatase 43 L (46-116) IU/L Total Protein 6.6 (6.4-8.2) g/dL Albumin 2.5 L (3.4-5.0) g/dL [facility] Results - Last 24 hrs: Microbiology 02/19/17 21:50 Stool Occult Blood ([facility]) - Final Stool / Feces NEGATIVE OCCULT BLOOD Med Orders - Current: Current Medications Acetaminophen (Tylenol) 650 mg PO Q4H PRN PRN Reason: Pain (Mild 1-3)/fever Last Admin: 02/19/17 19:16 Dose: 650 mg Albuterol (Proventil Neb Soln) 2.5 mg INH Q2H PRN PRN Reason: SHORTNESS OF BREATH Albuterol/Ipratropium (Duoneb 3.0-0.5 Mg/3 Ml) 3 ml NEB Q4HRRT PRN PRN Reason: Dyspnea Last Admin: 02/17/17 21:16 Dose: 3 ml Amlodipine Besylate (Norvasc) 5 mg PO Q12HR [facility] Last Admin: 02/20/17 07:06 Dose: 5 mg Calcium Carbonate (Caltrate 600+D 1500 Mg-400 Units) 1 tab PO DAILY [facility] Last Admin: 02/20/17 07:06 Dose: 1 tab Cholecalciferol (Vitamin D3) 3,000 units PO DAILY@1200 [facility] Last Admin: 02/20/17 11:35 Dose: 3,000 units Furosemide (Lasix) 20 mg PO DAILY@1200 [facility] Last Admin: 02/20/17 11:35 Dose: 20 mg Gabapentin (Neurontin) 100 mg PO BEDTIME [facility] Last Admin: 02/19/17 19:16 Dose: 100 mg Levothyroxine Sodium (Synthroid) 100 mcg PO ACBREAKFAST [facility] Last Admin: 02/20/17 06:34 Dose: 100 mcg Lisinopril (Prinivil) 10 mg PO DAILY [facility] Last Admin: 02/20/17 07:07 Dose: 10 mg Magnesium Hydroxide (Milk Of Magnesia) 30 ml PO ASDIRECTED PRN PRN Reason: Constipation Last Admin: 02/20/17 07:51 Dose: 30 ml Metoprolol Succinate (Toprol Xl) 25 mg PO DAILY [facility] Last Admin: 02/20/17 07:07 Dose: 25 mg Omeprazole (Omeprazole) 20 mg PO BEDTIME [facility] Ondansetron HCl (Zofran) 4 mg IVPUSH Q6H PRN PRN Reason: Nausea/Vomiting Last Admin: 02/17/17 09:23 Dose: 4 mg Temazepam (Restoril) 15 mg PO BEDTIME PRN PRN Reason: Insomnia Last Admin: 02/19/17 21:47 Dose: 15 mg Tramadol HCl (Ultram) 50 mg PO Q6H PRN PRN Reason: Pain (moderate 4-6) Last Admin: 02/18/17 12:09 Dose: 50 mg Discontinued Medications Amlodipine Besylate (Norvasc) 5 mg PO DAILY [facility] Last Admin: 02/17/17 08:15 Dose: 5 mg Aspirin (Halfprin) 81 mg PO 1800 [facility] Atenolol (Tenormin) 25 mg PO DAILY [facility] Last Admin: 02/17/17 08:15 Dose: 25 mg Enalaprilat (Vasotec Iv) 0.625 mg IVPUSH ONETIME ONE Stop: 02/17/17 13:31 Last Admin: 02/17/17 14:08 Dose: 0.625 mg Enalaprilat (Vasotec Iv) 0.625 mg IVPUSH ONETIME ONE Stop: 02/17/17 16:46 Last Admin: 02/17/17 17:08 Dose: Not Given Fenofibrate (Fenofibrate) 134 mg PO DAILY [facility] Last Admin: 02/17/17 08:15 Dose: 134 mg Fentanyl (Sublimaze) 25 mcg IVPUSH Q4H PRN PRN Reason: Pain Last Admin: 02/17/17 17:25 Dose: 25 mcg Hydromorphone HCl (Dilaudid) 1 mg IVPUSH ONETIME ONE Stop: 02/16/17 17:43 Last Admin: 02/16/17 17:51 Dose: 1 mg Hydromorphone HCl (Dilaudid) 1 mg IVPUSH Q6H PRN PRN Reason: Pain (severe 7-10) Last Admin: 02/17/17 09:23 Dose: 1 mg Ketorolac Tromethamine (Toradol) 15 mg IVPUSH Q8H [facility] Stop: 02/22/17 13:20 Last Admin: 02/20/17 13:38 Dose: 15 mg Ondansetron HCl (Zofran) 4 mg IVPUSH ONETIME ONE Stop: 02/16/17 17:43 Last Admin: 02/16/17 17:53 Dose: 4 mg Pantoprazole Sodium (Protonix Iv) 40 mg IVPUSH ONETIME ONE Stop: 02/17/17 13:31 Last Admin: 02/17/17 14:08 Dose: 40 mg Pantoprazole Sodium (Protonix Iv) 40 mg IVPUSH DAILY [facility] Last Admin: 02/20/17 07:07 Dose: 40 mg Pravastatin Sodium (Pravachol) 20 mg PO DAILY [facility] Last Admin: 02/17/17 08:15 Dose: 20 mg Sertraline HCl (Zoloft) 50 mg PO DAILY [facility] Last Admin: 02/17/17 08:15 Dose: 50 mg Sodium Chloride (Saline Flush) 10 ml FLUSH ASDIRECTED PRN PRN Reason: Keep Vein Open Last Admin: 02/20/17 13:45 Dose: 10 ml Sodium Chloride (Saline Flush) 10 ml FLUSH Q12H PRN PRN Reason: Keep Vein Open Sodium Chloride (Saline Flush) 10 ml FLUSH Q12HR [facility] Last Admin: 02/20/17 07:07 Dose: 10 ml *Q Meaningful Use (DIS) - VTE *Q VTE Criteria *Q: - Stroke *Q Stroke Criteria *Q: - AMI *Q AMI Criteria *Q:
[2017-02-20] MEDS ORDERED: Acetaminophen 325 MG Tab PO PRN (15:38)
[2017-02-20] MEDS ORDERED: Albuterol/Ipratropium 3.0-0.5 MG/3 ML Neb Soln NEB PRN (15:38)
[2017-02-20] MEDS ORDERED: Temazepam 15 MG Cap PO PRN (15:38)
[2017-02-20] MEDS ORDERED: traMADol 50 MG Tab PO PRN (15:38)
[2017-02-20 15:51] VITALS: BP 192/63
[2017-02-20] MEDS ORDERED: Albuterol 0.083% 2.5 MG/3 ML Neb Soln INH PRN (16:00)
[2017-02-20] MEDS ORDERED: Omeprazole 20 MG Cap.CR PO SCH (20:00)
[2017-02-20] MEDS ORDERED: Gabapentin 100 MG Cap PO SCH (20:00)
[2017-02-21] MEDS ORDERED: Levothyroxine 100 MCG Tab PO SCH (07:30)
[2017-02-21] MEDS ORDERED: Metoprolol Succinate 25 MG Tab.ER PO SCH (08:00)
[2017-02-21] MEDS ORDERED: Calcium Carbonate/Vitamin D3 1500 MG-400 Units Tab PO SCH (08:00)
[2017-02-21] MEDS ORDERED: Lisinopril 10 MG Tab PO SCH (08:00)
[2017-02-21] MEDS ORDERED: Furosemide 20 MG Tab PO SCH (12:00)
[2017-02-21] MEDS ORDERED: Vitamin E (dl-alpha-tocopherol acetate) 400 Unit Cap PO SCH (12:00)
[2017-02-21] MEDS ORDERED: Omeprazole 20 MG Cap.CR PO SCH (20:00)
== END 2017-02-20 17:18 | disposition swing bed (61) | DRG 563 ==
LOC: LL.ED 17:27 → UNDOADMIN 19:05 → LL.MS 19:05 → UNDODISIN 02-20 17:18
PROVIDERS: ADMIT Family Medicine; ATTEND Family Medicine
DX: S82.141A Displaced bicondylar fracture of right tibia, initial encounter for closed fracture (principal); S93.401A Sprain of unspecified ligament of right ankle, initial encounter; W07.XXXA Fall from chair, initial encounter; I25.10 Atherosclerotic heart disease of native coronary artery without angina pectoris; I10 Essential (primary) hypertension; E78.00 Pure hypercholesterolemia, unspecified; H44.9 Unspecified disorder of globe; J30.9 Allergic rhinitis, unspecified; M19.90 Unspecified osteoarthritis, unspecified site; F41.8 Other specified anxiety disorders; H54.7 Unspecified visual loss; Z95.0 Presence of cardiac pacemaker; Z88.0 Allergy status to penicillin; Z79.82 Long term (current) use of aspirin; Z79.899 Other long term (current) drug therapy
CPT/HCPCS: 73562; 96374; 96375; 99284; J1170; J2405; 36415; 73700-RT; 80053; 82272; 83735; 84550; 85025; 86140; 87338; 94664; 97110-GP; 97116-GP; 97161-GP; 97165-GO; A9270-GY; C9113; J1885; J3010; J7050

== ENCOUNTER 2017-02-20 14:24 | Inpatient (IN) | payer MEDICARE, BC ==
[2017-02-20] MEDS ORDERED: Albuterol 0.083% 2.5 MG/3 ML Neb Soln NEB PRN (15:57)
[2017-02-20] MEDS ORDERED: Albuterol/Ipratropium 3.0-0.5 MG/3 ML Neb Soln NEB PRN (15:57)
[2017-02-20] MEDS ORDERED: Magnesium Hydroxide 400 MG/5 ML Susp 30 ML Cup PO PRN (15:57)
--- NOTE | 2017-02-20 16:34 | PCM.HP ---
H&P History of Present Illness - General Date of Service: 02/20/17 Admit Problem/Dx: Admission Diagnosis/Problem Admission Diagnosis/Problem Fall at home Source of Information: Patient, Old Records - History of Present Illness Location: Reports: Lower Extremity, Right Quality: Reports: Sharp Improves with: Reports: Cold Therapy, Immobilization Associated Symptoms: Reports: No Other Symptoms - Related Data Allergies/Adverse Reactions: Allergies Allergy/AdvReac Type Severity Reaction Status Date / Time Penicillins Allergy Cannot Verified 02/20/17 07:03 Remember Home Medications: Home Meds Aspirin [Low Dose Aspirin EC] 81 mg PO DAILY@1800 02/16/17 [History] Cholecalciferol (Vitamin D3) [Vitamin D3] 3,000 unit PO 1200 02/16/17 [History] Fenofibrate,Micronized [Fenofibrate] 134 mg PO DAILY 02/16/17 [History] Pravastatin [Pravachol] 20 mg PO DAILY 02/16/17 [History] Sertraline [Zoloft] 50 mg PO DAILY 02/16/17 [History] Vitamin E 400 unit PO DAILY@1200 02/16/17 [History] amLODIPine [Norvasc] 5 mg PO Q12HR 02/16/17 [History] Acetaminophen [Tylenol] 650 mg PO Q4HR PRN 02/20/17 [History] Albuterol [Proventil] 2.5 mg NEB Q2HR PRN 02/20/17 [History] Albuterol/Ipratropium [DuoNeb 3.0-0.5 MG/3 ML] 3 ml NEB Q4HRRT PRN 02/20/17 [ History] Calcium Carbonate/Vitamin D3 [Caltrate 600+D 1500 MG-400 Units] 1 tab PO DAILY 02/20/17 [History] Furosemide 20 mg PO DAILY 02/20/17 [History] Gabapentin [Neurontin] 100 mg PO BEDTIME 02/20/17 [History] Levothyroxine Sodium [Levo-T] 100 mcg PO ACBREAKFAST 02/20/17 [History] Lisinopril 10 mg PO DAILY 02/20/17 [History] Magnesium Hydroxide [Milk of Magnesia] 30 ml PO ASDIRECTED PRN 02/20/17 [History ] Metoprolol Succinate [Toprol XL] 25 mg PO DAILY 02/20/17 [History] Omeprazole 20 mg PO BEDTIME 02/20/17 [History] Temazepam 15 mg PO BEDTIME PRN 02/20/17 [History] traMADol HCl [Tramadol HCl] 50 mg PO Q6H PRN 02/20/17 [History] Past Medical History HEENT History: Reports: Allergic Rhinitis, Cataract, Impaired Vision, Other ( See Below). Denies: Glaucoma, Hard of Hearing, Macular Degeneration, Retinal Detachment Other HEENT History: Patient wears glasses, seasonal allergies, bilateral cataracts with no surgery to this point Cardiovascular History: Reports: Arrhythmia, CAD, Heart Murmur, High Cholesterol , Hypertension, Pacemaker, Other (See Below). 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 Mild coronary artery disease with no previous history of RI, only mild bilateral carotid occlusive disease, mild aortic valve stenosis and mitral valve insufficiency by clinical exam, dyslipidemia Respiratory History: Reports: COPD, Intubation, Previous, Other (See Below). Denies: Asthma, PE, Pneumothorax, Sleep Apnea Other Respiratory History: COPD by chest x-ray Gastrointestinal History: Reports: None. Denies: Bowel Obstruction, Celiac Disease, Cholelithiasis, Chronic Constipation, Chronic Diarrhea, Fecal Incontinence, Gastritis, GERD, GI Bleed, Inflammatory Bowel Disease, Irritable Bowel Syndrome, PUD Genitourinary History: Reports: None. Denies: Acute Renal Failure, Chronic Renal Insuffiency, Renal Calculus, STD, Urinary Incontinence, UTI, Recurrent PULP GRINDER History: Reports: Dysfunctional Uterine Bleeding, Fibroids, . Denies: Endometriosis, Spontaneous Musculoskeletal History: Reports: Arthritis, Back Pain, Chronic, Neck Pain, Chronic, Osteoarthritis, Osteoporosis, Other (See Below). Denies: Amputation, Fracture, Gout, RA, SLE Other Musculoskeletal History: Right-sided sciatica Neurological History: Reports: None. Denies: Alzheimers Disease, Cerebral Aneurysms, Concussion, CVA, Headaches, Chronic, Head Trauma, Migraines, MS, Neuropathy, Peripheral, Parkinson's, Seizure, TIA Psychiatric History: Reports: Anxiety, Depression. Denies: Abuse, Victim of, ADD, ADHD, Addiction, Psych Hospitalization(s), PTSD, Suicide Attempt, Suicidal Ideation Endocrine/Metabolic History: Reports: Hypothyroidism, Osteoporosis. Denies: Diabetes, Type I, Diabetes, Type II, IDDM Hematologic History: Reports: None. Denies: Anemia, Blood Transfusion(s), Iron Deficiency Immunologic History: Reports: None. Denies: AIDS, HIV, SLE Oncologic (Cancer) History: Reports: None. Denies: Basal Cell Carcinoma, Hodgkin's Lymphoma, Leukemia, Lymphoma, Malignant Melanoma, Non-Hodgkin's Lymphoma, Squamous Cell Carcinoma Dermatologic History: Reports: None. Denies: Eczema, Psoriasis - Infectious Disease History Infectious Disease History: Reports: Chicken Pox, Measles. Denies: C-Difficile , Meningitis, Mononucleosis, MRSA, Mumps, Pertussis (Whooping Cough), Rheumatic Fever, Rubella, Scarlet Fever, Shingles, VRE - Past Surgical History Head Surgeries/Procedures: Reports: None HEENT Surgical History: Reports: None, Oral Surgery, Other (See Below). Denies : Adenoidectomy, Cataract Surgery, Eye Surgery, Laser Surgery, LASIK, Myringotomy w Tube(s), Naso-Sinus Surgery, Tonsillectomy Other HEENT Surgeries/Procedures: [place] teeth extraction 4 in her 20s Cardiovascular Surgical History: Reports: Pacer, Other (See Below). Denies: Coronary Artery Bypass, Valve Replacement, Varicose, Vascular Surgery Other Cardiovascular Surgeries/Procedures: Show pacemaker placement in February 1999 with subsequent pacemaker replacements on 04/30/06 and then in November 2014 Respiratory Surgical History: Reports: None. Denies: Thoracentesis GI Surgical History: Reports: None. Denies: Appendectomy, Cholecystectomy, Colonoscopy, EGD, Hernia, Abdominal, Hernia, Inguinal, Hernia Repair/Other Female Surgical History: Reports: Hysterectomy, Salpingo-Oophorectomy, Other (See Below). Denies: Section, D&C, Tubal Ligation Other Female Surgeries/Procedures: Complete hysterectomy including bilateral salpingo-oophorectomy in her 40s secondary to uterine fibroids and dysfunctional uterine bleeding Endocrine Surgical History: Reports: None. Denies: Thyroid Biopsy Neurological Surgical History: Reports: None. Denies: C-Spine, Discectomy, Laminectomy, Lumbar Spine, Sacral Spine, Spinal Fusion, Vertebroplasty Musculoskeletal Surgical History: Reports: None. Denies: Arthroscopic Knee, Arthroscopic Procedure, Carpal Tunnel, Ganglion Cyst, Joint Replacement, ORIF, Shoulder Surgery Oncologic Surgical History: Reports: None Dermatological Surgical History: Reports: None - Past Imaging History Past Imaging History: Reports: Carotid US (Carotid artery Doppler studies last done 12/23/12 with previous evaluations and 12/09/09 and 12/21/05), CAT Scan (CT of the brain on 12/23/12, CT of the thoracic and lumbar spines on 09/07/06) Social & Family History - Family History HEENT: Reports: None. Denies: Cataract, Glaucoma, Macular Degeneration, Retinal Detachment Cardiac: Reports: Bypass, CAD, Congenital Septal Defect, Heart Failure, High Cholesterol, Hypertension, RI, Other (See Below). Denies: Afib, AICD, Aneurysm , Arrhythmia, Blood Clots/VTE/DVT, Pacemaker, PVD/COD, Syncope Other Cardiac Family History: 2 daughters with hypertension and hyperlipidemia, mother also with hypertension, brother with CABG and RI in his 70s, mother with fatal RI at age 69, brother with PTCA/stent and RI in his late 60s, son from heart complications/cardiomegaly from his Down syndrome at age 26 Respiratory: Reports: Asthma, COPD, Other (See Below). Denies: PE, Pneumothorax , Sleep Apnea Other Respiratory Family Hisory: Asthma in father and brother, sister with COPD with history of tobacco use, son with pulmonary fibrosis with no history of tobacco use : Reports: Dialysis, Renal Disease/Insufficiency, Other (See Below). Denies: Renal Calculus Other Family History: Sister with fatal diabetic nephropathy requiring dialysis in her 80s, another sister with fatal renal disease in her 80s OBGYN: Reports: None. Denies: Endometriosis, Recurrent Spontaneous Musculoskeletal: Reports: None. Denies: Gout, RA, SLE Neurological: Reports: CVA, Other (See Below). Denies: Alzheimers Disease, Cerebral Aneurysms, Dementia, Migraines, MS, Parkinson's, Seizure, TIA Other Neurological Family History: Mother with multiple recurrent CVAs Psychiatric: Reports: None. Denies: Abuse, Victim of, ADD, ADHD, Anxiety, Autism, Depression, Psych Hospitalization(s), PTSD, Suicide Attempt Endocrine/Metabolic: Reports: Diabetes, type II, Hypothyroidism, IDDM, Other ( See Below) Other Endocrine/Metabolic Family History: Diabetes mellitus and hypothyroidism in 2 daughters and granddaughter, IDDM in sister with renal failure as above Hematologic: Reports: None. Denies: Anemia, B12 Deficiency, SLE Immunologic: Reports: None. Denies: AIDS, HIV, SLE Dermatologic: Reports: None. Denies: Eczema, Psoriasis Oncologic: Reports: Liver, Skin, Other (See Below). Denies: Colon, Leukemia, Uterine Other Oncologic Family History: Sister with fatal hepatic cancer at age 87 brother with melanoma - Tobacco Use Smoking Status *Q: Never Smoker - Caffeine Use Caffeine Use: Reports: None - Alcohol Use Days Per Week of Alcohol Use: 0 - Recreational Drug Use Recreational Drug Use: No H&P Review of Systems - Review of Systems: Review Of Systems: See Below General: Reports: No Symptoms HEENT: Reports: No Symptoms Pulmonary: Reports: No Symptoms Cardiovascular: Reports: No Symptoms Gastrointestinal: Reports: No Symptoms Genitourinary: Reports: No Symptoms Musculoskeletal: Reports: Leg Pain (right), Joint Pain (right knee) Skin: Reports: No Symptoms Psychiatric: Reports: No Symptoms Neurological: Reports: No Symptoms Hematologic/Lymphatic: Reports: No Symptoms Immunologic: Reports: No Symptoms Exam - Exam Exam: See Below - Vital Signs Weight: 136 lb 8 oz - Exam General: Alert, Cooperative HEENT: Conjunctiva Clear, EACs Clear, EOMI, Hearing Intact, Mucosa Moist & [place] , Nares Patent, PERRLA Neck: Trachea Midline Lungs: Clear to Auscultation, Normal Respiratory Effort Cardiovascular: Regular Rate, Regular Rhythm GI/Abdominal Exam: Soft, Non-Tender, No Distention (Female) Exam: Deferred Rectal (Female) Exam: Deferred Back Exam: Other (kyphosis) Extremities: No Pedal Edema, Joint Swelling (right knee), Leg Pain (right) Skin: Warm, Dry, Intact, Ecchymosis (from IV starts) Neurological: Normal Speech Neuro Extensive - Mental Status: Alert, Normal Mood/Affect, Normal Cognition Psychiatric: Alert, Normal Affect, Normal Mood *Q Meaningful Use (ADM) - VTE *Q VTE Criteria *Q: - Stroke *Q Stroke Criteria *Q: - AMI *Q AMI Criteria *Q: - Problem List (1) Tibial plateau fracture, right SNOMED Code(s): 794719571 ICD Code: S82.141A - DISPLACED BICONDYLAR FRACTURE OF RIGHT TIBIA, INIT Status: Acute Priority: High Onset Date: 02/16/17 Problem Details: IV Dilaudid given in the emergency room with overall good control of her symptoms. Patient placed in a knee immobilizer. Per recommendations from the radiologist CT scan of the knee will be conducted in the a.m. Patient is not a candidate for an MRI secondary to her pacemaker. Orthopedic consultation as needed. Note that patient will have difficulty taking care of herself at home with consideration of swing bed placement after inpatient care for pain control. Physical therapy and occupational therapy in the a.m. Qualifiers: Encounter type: initial encounter Fracture type: closed Qualified Code(s) : S82.141A - Displaced bicondylar fracture of right tibia, initial encounter for closed fracture (2) COPD (chronic obstructive pulmonary disease) SNOMED Code(s): 89839062 ICD Code: J44.9 - CHRONIC OBSTRUCTIVE PULMONARY DISEASE, UNSPECIFIED Status : Chronic Priority: Medium Problem Details: Stable by history with no recent fever or bronchitic type symptoms Qualifiers: COPD type: emphysema Emphysema type: panlobular Qualified Code(s): J43.1 - Panlobular emphysema (3) Coronary artery disease SNOMED Code(s): 29074185 ICD Code: I25.10 - ATHSCL HEART DISEASE OF [place] CORONARY ARTERY W/O ANG PCTRS Status: Chronic Priority: Medium Problem Details: No recent chest pain or anginal type symptoms. Note status post previous third-degree block with multiple pacemaker placements as above Qualifiers: Coronary Disease-Associated Artery/Lesion type: [place] artery [place] vs. transplanted heart: [place] heart Associated angina: without angina Qualified Code(s): I25.10 - Atherosclerotic heart disease of [place] coronary artery without angina pectoris (4) Hypertension SNOMED Code(s): 47239429 ICD Code: I10 - ESSENTIAL (PRIMARY) HYPERTENSION Status: Chronic Priority : Medium Problem Details: Stable by history. Observe blood pressures closely with somewhat elevated blood pressures in the emergency room likely secondary to pain. Medication adjustments depending on her clinical course. Qualifiers: Hypertension type: essential hypertension Qualified Code(s): I10 - Essential (primary) hypertension (5) Mixed anxiety depressive disorder SNOMED Code(s): 690840149 ICD Code: F41.8 - OTHER SPECIFIED ANXIETY DISORDERS Status: Chronic Priority: Medium Problem Details: Stable by history (6) Osteoarthritis SNOMED Code(s): 298322235 ICD Code: M19.90 - UNSPECIFIED OSTEOARTHRITIS, UNSPECIFIED SITE Status: Chronic Priority: Medium Problem Details: Otherwise stable by history Qualifiers: Osteoarthritis location: multiple joints Osteoarthritis type: primary Qualified Code(s): M15.0 - Primary generalized (osteo)arthritis (7) Right ankle sprain SNOMED Code(s): 60464654 ICD Code: S93.401A - SPRAIN OF UNSPECIFIED LIGAMENT OF RIGHT ANKLE, INIT ENCNTR Status: Acute Problem List Initiated/Reviewed/Updated: Yes Orders Last 24hrs: Active Orders 24 hr Category Date Time Status Patient Status Discharge Transfer [TRANSFER] Routine ADT 02/20/17 15:48 Ordered Patient Status [ADT] Routine ADT 02/20/17 16:04 Active Communication Order [RC] ROUTINE Care 02/20/17 16:18 Active Ready for Discharge [RC] PER UNIT ROUTINE Care 02/20/17 15:33 Inactive Vital Signs [RC] BID Care 02/20/17 16:11 Active Care Management Consult [Consult to Case Management] [ Cons 02/20/17 16:11 Active CONS] Routine Consult to Occupational Therapy [OT Evaluation and Cons 02/20/17 16:10 Active Treatment] [CONS] Routine Consult to Physical Therapy [PT Evaluation and Cons 02/20/17 16:10 Active Treatment] [CONS] Routine Regular Diet [DIET] Diet 02/20/17 Dinner Active CBC WITH AUTO DIFF [HEME] Routine Lab 02/21/17 05:11 Ordered CMP [COMPREHENSIVE METABOLIC PN,CMP] [CHEM] Routine Lab 02/21/17 05:11 Ordered Acetaminophen [Tylenol] Med 02/20/17 15:57 Pending 650 mg PO Q4HR PRN Albuterol Med 02/20/17 15:57 Ordered 2.5 mg NEB Q2HR PRN Albuterol/Ipratropium [DuoNeb 3.0-0.5 MG/3 ML] Med 02/20/17 15:57 Pending 3 ml NEB Q4HRRT PRN Aspirin [Halfprin] Med 02/20/17 18:00 Ordered 81 mg PO DAILY@1800 Calcium Carbonate/Vitamin D3 [Caltrate 600+D 1500 MG- Med 02/21/17 08:00 Ordered 400 Units] 1 tab PO DAILY Cholecalciferol (Vitamin D3) [Vitamin D3] Med 02/21/17 12:00 Ordered 3,000 unit PO 1200 Fenofibrate,Micronized [Fenofibrate] Med 02/21/17 08:00 Ordered 134 mg PO DAILY Furosemide [Lasix] Med 02/21/17 12:00 Ordered 20 mg PO DAILY@1200 Gabapentin [Neurontin] Med 02/20/17 20:00 Ordered 100 mg PO BEDTIME Levothyroxine [Synthroid] Med 02/21/17 07:30 Ordered 100 mcg PO ACBREAKFAST Lisinopril [Prinivil] Med 02/21/17 08:00 Ordered 10 mg PO DAILY Magnesium Hydroxide [Milk of Magnesia] Med 02/20/17 15:57 Ordered 30 ml PO ASDIRECTED PRN Metoprolol Succinate [Toprol XL] Med 02/21/17 08:00 Ordered 25 mg PO DAILY Omeprazole Med 02/20/17 20:00 Ordered 20 mg PO BEDTIME Pravastatin [Pravachol] Med 02/20/17 20:00 Ordered 20 mg PO BEDTIME Sertraline [Zoloft] Med 02/21/17 08:00 Ordered 50 mg PO DAILY Temazepam [Restoril] Med 02/20/17 15:57 Ordered 15 mg PO BEDTIME PRN Vitamin E [Vitamin E] Med 02/21/17 12:00 Ordered 400 unit PO DAILY@1200 amLODIPine [Norvasc] Med 02/20/17 20:00 Ordered 5 mg PO Q12HR traMADol [Ultram] Med 02/20/17 15:57 Ordered 50 mg PO Q6H PRN Code Status [Resuscitation Status] Routine Resus Stat 02/20/17 16:06 Ordered Medication Orders Acetaminophen (Tylenol) 650 mg PO Q4HR PRN PRN Reason: Pain Albuterol/Ipratropium (Duoneb 3.0-0.5 Mg/3 Ml) 3 ml NEB Q4HRRT PRN PRN Reason: Dyspnea Amlodipine Besylate (Norvasc) 5 mg PO Q12HR [facility] Aspirin (Halfprin) 81 mg PO DAILY@1800 [facility] Calcium Carbonate (Caltrate 600+D 1500 Mg-400 Units) 1 tab PO DAILY [facility] Fenofibrate (Fenofibrate) 134 mg PO DAILY [facility] Furosemide (Lasix) 20 mg PO DAILY@1200 [facility] Gabapentin (Neurontin) 100 mg PO BEDTIME [facility] Levothyroxine Sodium (Synthroid) 100 mcg PO ACBREAKFAST [facility] Lisinopril (Prinivil) 10 mg PO DAILY [facility] Magnesium Hydroxide (Milk Of Magnesia) 30 ml PO ASDIRECTED PRN PRN Reason: Constipation Metoprolol Succinate (Toprol Xl) 25 mg PO DAILY [facility] Non-Formulary Medication (Albuterol) 2.5 mg NEB Q2HR PRN PRN Reason: Dyspnea Non-Formulary Medication (Cholecalciferol (Vitamin D3) [Vitamin D3]) 3,000 unit PO 1200 [facility] Non-Formulary Medication (Vitamin E [Vitamin E]) 400 unit PO DAILY@1200 [facility] Omeprazole (Omeprazole) 20 mg PO BEDTIME [facility] Pravastatin Sodium (Pravachol) 20 mg PO BEDTIME [facility] Sertraline HCl (Zoloft) 50 mg PO DAILY [facility] Temazepam (Restoril) 15 mg PO BEDTIME PRN PRN Reason: Insomnia Tramadol HCl (Ultram) 50 mg PO Q6H PRN PRN Reason: Pain Assessment/Plan Comment:: 02/20/17 Brent Butler MD Recent fall at home. Right tibial plateau fracture. Inpatient hospitalized with IV toradol. Now she requires swing bed status for PT-OT.
[2017-02-20] MEDS: Aspirin 81 MG Tab.EC PO SCH (18:24)
[2017-02-20] MEDS: Omeprazole 20 MG Cap.CR PO SCH (19:46)
[2017-02-20] MEDS: amLODIPine 5 MG Tab PO SCH (19:46)
[2017-02-20] MEDS: Pravastatin 20 MG Tab PO SCH (19:47)
[2017-02-20] MEDS: Gabapentin 100 MG Cap PO SCH (19:47)
[2017-02-20] MEDS: Acetaminophen 325 MG Tab PO PRN (19:47)
[2017-02-20] MEDS: Temazepam 15 MG Cap PO PRN (20:59)
[2017-02-20] MEDS: traMADol 50 MG Tab PO PRN (23:02)
[2017-02-21] MEDS: Fenofibrate,Micronized 134 MG Cap PO SCH (07:36)
[2017-02-21] MEDS: Metoprolol Succinate 25 MG Tab.ER PO SCH (07:36)
[2017-02-21] MEDS: Levothyroxine 100 MCG Tab PO SCH (07:36)
[2017-02-21] MEDS: amLODIPine 5 MG Tab PO SCH ×2 (07:37→19:23)
[2017-02-21] MEDS: Sertraline 50 MG Tab PO SCH (07:37)
[2017-02-21] MEDS: Lisinopril 10 MG Tab PO SCH (07:37)
[2017-02-21] MEDS: Docusate Sodium 100 MG Cap PO PRN (07:37)
[2017-02-21] MEDS: Calcium Carbonate/Vitamin D3 1500 MG-400 Units Tab PO SCH (07:37)
[2017-02-21] MEDS ORDERED: Pravastatin 20 MG Tab PO SCH (08:00)
[2017-02-21] MEDS ORDERED: Furosemide 20 MG Tab PO SCH (08:00)
[2017-02-21] MEDS: Vitamin E (dl-alpha-tocopherol acetate) 400 Unit Cap PO SCH (11:27)
[2017-02-21] MEDS: Cholecalciferol (Vitamin D3) 1,000 Unit Tab PO SCH (11:27)
[2017-02-21] MEDS: Furosemide 20 MG Tab PO SCH (11:27)
[2017-02-21] MEDS: Aspirin 81 MG Tab.EC PO SCH (17:04)
[2017-02-21] MEDS: Omeprazole 20 MG Cap.CR PO SCH (19:22)
[2017-02-21] MEDS: Gabapentin 100 MG Cap PO SCH (19:23)
[2017-02-21] MEDS: Pravastatin 20 MG Tab PO SCH (19:23)
[2017-02-21] MEDS: Temazepam 15 MG Cap PO PRN (22:06)
[2017-02-21] MEDS: Acetaminophen 325 MG Tab PO PRN (22:07)
[2017-02-22] MEDS: Calcium Carbonate/Vitamin D3 1500 MG-400 Units Tab PO SCH (08:08)
[2017-02-22] MEDS: Fenofibrate,Micronized 134 MG Cap PO SCH (08:08)
[2017-02-22] MEDS: Metoprolol Succinate 25 MG Tab.ER PO SCH (08:08)
[2017-02-22] MEDS: Levothyroxine 100 MCG Tab PO SCH (08:09)
[2017-02-22] MEDS: Sertraline 50 MG Tab PO SCH (08:09)
[2017-02-22] MEDS: amLODIPine 5 MG Tab PO SCH ×2 (08:09→19:08)
[2017-02-22] MEDS: Lisinopril 10 MG Tab PO SCH ×2 (08:09→19:08)
[2017-02-22] MEDS: Vitamin E (dl-alpha-tocopherol acetate) 400 Unit Cap PO SCH (11:36)
[2017-02-22] MEDS: Furosemide 20 MG Tab PO SCH (11:36)
[2017-02-22] MEDS: Cholecalciferol (Vitamin D3) 1,000 Unit Tab PO SCH (11:36)
[2017-02-22] MEDS: Aspirin 81 MG Tab.EC PO SCH (17:43)
[2017-02-22] MEDS: Isosorbide Mononitrate 30 MG Tab.ER PO SCH (19:08)
[2017-02-22] MEDS: Gabapentin 100 MG Cap PO SCH (19:08)
[2017-02-22] MEDS: Pravastatin 20 MG Tab PO SCH (19:09)
[2017-02-22] MEDS: Omeprazole 20 MG Cap.CR PO SCH (19:09)
[2017-02-22] MEDS: Acetaminophen 325 MG Tab PO PRN (20:36)
[2017-02-22] MEDS: Temazepam 15 MG Cap PO PRN (20:37)
[2017-02-23] MEDS: amLODIPine 5 MG Tab PO SCH ×2 (08:10→19:07)
[2017-02-23] MEDS: Levothyroxine 100 MCG Tab PO SCH (08:11)
[2017-02-23] MEDS: Fenofibrate,Micronized 134 MG Cap PO SCH (08:11)
[2017-02-23] MEDS: Calcium Carbonate/Vitamin D3 1500 MG-400 Units Tab PO SCH (08:11)
[2017-02-23] MEDS: Lisinopril 10 MG Tab PO SCH ×2 (08:12→19:07)
[2017-02-23] MEDS: Sertraline 50 MG Tab PO SCH (08:12)
[2017-02-23] MEDS: Metoprolol Succinate 25 MG Tab.ER PO SCH (08:12)
[2017-02-23] MEDS: Cholecalciferol (Vitamin D3) 1,000 Unit Tab PO SCH (11:35)
[2017-02-23] MEDS: Furosemide 20 MG Tab PO SCH (11:35)
[2017-02-23] MEDS: Vitamin E (dl-alpha-tocopherol acetate) 400 Unit Cap PO SCH (11:35)
[2017-02-23] MEDS: Aspirin 81 MG Tab.EC PO SCH (17:41)
[2017-02-23] MEDS: Isosorbide Mononitrate 30 MG Tab.ER PO SCH (19:07)
[2017-02-23] MEDS: Gabapentin 100 MG Cap PO SCH (19:07)
[2017-02-23] MEDS: Pravastatin 20 MG Tab PO SCH (19:08)
[2017-02-23] MEDS: Omeprazole 20 MG Cap.CR PO SCH (19:08)
[2017-02-23] MEDS: Acetaminophen 325 MG Tab PO PRN (19:08)
[2017-02-23] MEDS: Temazepam 15 MG Cap PO PRN (23:44)
[2017-02-24] MEDS: Metoprolol Succinate 25 MG Tab.ER PO SCH (07:54)
[2017-02-24] MEDS: Levothyroxine 100 MCG Tab PO SCH (07:54)
[2017-02-24] MEDS: Lisinopril 10 MG Tab PO SCH (07:55)
[2017-02-24] MEDS: Fenofibrate,Micronized 134 MG Cap PO SCH (07:55)
[2017-02-24] MEDS: Calcium Carbonate/Vitamin D3 1500 MG-400 Units Tab PO SCH (07:55)
[2017-02-24] MEDS: Sertraline 50 MG Tab PO SCH (07:56)
[2017-02-24] MEDS: amLODIPine 5 MG Tab PO SCH ×2 (07:56→20:31)
[2017-02-24] MEDS: Furosemide 20 MG Tab PO SCH (11:20)
[2017-02-24] MEDS: Cholecalciferol (Vitamin D3) 1,000 Unit Tab PO SCH (11:20)
[2017-02-24] MEDS: Vitamin E (dl-alpha-tocopherol acetate) 400 Unit Cap PO SCH (11:21)
[2017-02-24] MEDS: Aspirin 81 MG Tab.EC PO SCH (17:47)
[2017-02-24] MEDS ORDERED: Isosorbide Mononitrate 60 MG Tab.ER PO SCH (20:00)
[2017-02-24] MEDS: Omeprazole 20 MG Cap.CR PO SCH (20:27)
[2017-02-24] MEDS: Temazepam 15 MG Cap PO PRN (20:27)
[2017-02-24] MEDS: Gabapentin 100 MG Cap PO SCH (20:27)
[2017-02-24] MEDS: Pravastatin 20 MG Tab PO SCH (20:27)
[2017-02-24] MEDS: Acetaminophen 325 MG Tab PO PRN (20:28)
[2017-02-24] MEDS: Doxazosin 2 MG Tab PO SCH (20:32)
[2017-02-25] MEDS: Acetaminophen 325 MG Tab PO PRN (00:52)
[2017-02-25] MEDS: traMADol 50 MG Tab PO PRN (00:52)
[2017-02-25] MEDS: Levothyroxine 100 MCG Tab PO SCH (08:27)
[2017-02-25] MEDS: Calcium Carbonate/Vitamin D3 1500 MG-400 Units Tab PO SCH (08:27)
[2017-02-25] MEDS: Fenofibrate,Micronized 134 MG Cap PO SCH (08:27)
[2017-02-25] MEDS: Sertraline 50 MG Tab PO SCH (08:28)
[2017-02-25] MEDS: Doxazosin 2 MG Tab PO SCH (08:28)
[2017-02-25] MEDS: Metoprolol Succinate 25 MG Tab.ER PO SCH (10:12)
[2017-02-25] MEDS: amLODIPine 5 MG Tab PO SCH ×2 (10:12→19:57)
[2017-02-25] MEDS: Vitamin E (dl-alpha-tocopherol acetate) 400 Unit Cap PO SCH (11:32)
[2017-02-25] MEDS: Cholecalciferol (Vitamin D3) 1,000 Unit Tab PO SCH (11:33)
[2017-02-25] MEDS: Aspirin 81 MG Tab.EC PO SCH (17:32)
[2017-02-25] MEDS: Isosorbide Mononitrate 30 MG Tab.ER PO SCH (19:57)
[2017-02-25] MEDS: Pravastatin 20 MG Tab PO SCH (19:57)
[2017-02-25] MEDS: Gabapentin 100 MG Cap PO SCH (19:57)
[2017-02-25] MEDS: Omeprazole 20 MG Cap.CR PO SCH (19:57)
[2017-02-26] MEDS: Levothyroxine 100 MCG Tab PO SCH (07:24)
[2017-02-26] MEDS: amLODIPine 5 MG Tab PO SCH ×2 (08:01→19:35)
[2017-02-26] MEDS: Metoprolol Succinate 25 MG Tab.ER PO SCH (08:01)
[2017-02-26] MEDS: Sertraline 50 MG Tab PO SCH (08:01)
[2017-02-26] MEDS: Fenofibrate,Micronized 134 MG Cap PO SCH (08:01)
[2017-02-26] MEDS: Calcium Carbonate/Vitamin D3 1500 MG-400 Units Tab PO SCH (08:01)
[2017-02-26] MEDS: Vitamin E (dl-alpha-tocopherol acetate) 400 Unit Cap PO SCH (11:30)
[2017-02-26] MEDS: Cholecalciferol (Vitamin D3) 1,000 Unit Tab PO SCH (11:30)
[2017-02-26] MEDS: Docusate Sodium 100 MG Cap PO PRN (17:05)
[2017-02-26] MEDS: Aspirin 81 MG Tab.EC PO SCH (17:05)
[2017-02-26] MEDS: Isosorbide Mononitrate 30 MG Tab.ER PO SCH (19:35)
[2017-02-26] MEDS: Gabapentin 100 MG Cap PO SCH (19:35)
[2017-02-26] MEDS: Pravastatin 20 MG Tab PO SCH (19:35)
[2017-02-26] MEDS: Omeprazole 20 MG Cap.CR PO SCH (19:35)
[2017-02-27] MEDS: Levothyroxine 100 MCG Tab PO SCH (07:33)
[2017-02-27] MEDS: Calcium Carbonate/Vitamin D3 1500 MG-400 Units Tab PO SCH (08:27)
[2017-02-27] MEDS: Docusate Sodium 100 MG Cap PO PRN (08:27)
[2017-02-27] MEDS: Metoprolol Succinate 25 MG Tab.ER PO SCH (08:28)
[2017-02-27] MEDS: Fenofibrate,Micronized 134 MG Cap PO SCH (08:28)
[2017-02-27] MEDS: Sertraline 50 MG Tab PO SCH (08:28)
[2017-02-27] MEDS: amLODIPine 5 MG Tab PO SCH ×2 (08:33→19:41)
[2017-02-27] MEDS: Cholecalciferol (Vitamin D3) 1,000 Unit Tab PO SCH (13:15)
[2017-02-27] MEDS: Vitamin E (dl-alpha-tocopherol acetate) 400 Unit Cap PO SCH (13:15)
[2017-02-27] MEDS: Aspirin 81 MG Tab.EC PO SCH (17:12)
[2017-02-27] MEDS: Isosorbide Mononitrate 30 MG Tab.ER PO SCH (19:41)
[2017-02-27] MEDS: Gabapentin 100 MG Cap PO SCH (19:41)
[2017-02-27] MEDS: Pravastatin 20 MG Tab PO SCH (19:41)
[2017-02-27] MEDS: Omeprazole 20 MG Cap.CR PO SCH (19:41)
[2017-02-28] MEDS: Acetaminophen 325 MG Tab PO PRN (01:21)
[2017-02-28] MEDS: Temazepam 15 MG Cap PO PRN ×2 (01:21→19:56)
[2017-02-28] MEDS: amLODIPine 5 MG Tab PO SCH ×2 (07:52→19:58)
[2017-02-28] MEDS: Metoprolol Succinate 25 MG Tab.ER PO SCH (07:59)
[2017-02-28] MEDS: Sertraline 50 MG Tab PO SCH (08:01)
[2017-02-28] MEDS: Levothyroxine 100 MCG Tab PO SCH (08:01)
[2017-02-28] MEDS: Fenofibrate,Micronized 134 MG Cap PO SCH (08:02)
[2017-02-28] MEDS: Calcium Carbonate/Vitamin D3 1500 MG-400 Units Tab PO SCH (08:02)
[2017-02-28] MEDS: Vitamin E (dl-alpha-tocopherol acetate) 400 Unit Cap PO SCH (11:42)
[2017-02-28] MEDS: Cholecalciferol (Vitamin D3) 1,000 Unit Tab PO SCH (11:42)
[2017-02-28] MEDS: Aspirin 81 MG Tab.EC PO SCH (17:34)
[2017-02-28] MEDS: Gabapentin 100 MG Cap PO SCH (19:57)
[2017-02-28] MEDS: Pravastatin 20 MG Tab PO SCH (19:57)
[2017-02-28] MEDS: Omeprazole 20 MG Cap.CR PO SCH (19:57)
[2017-02-28] MEDS: Isosorbide Mononitrate 30 MG Tab.ER PO SCH (19:58)
[2017-03-01] MEDS: Fenofibrate,Micronized 134 MG Cap PO SCH (08:16)
[2017-03-01] MEDS: Calcium Carbonate/Vitamin D3 1500 MG-400 Units Tab PO SCH (08:16)
[2017-03-01] MEDS: Levothyroxine 100 MCG Tab PO SCH (08:16)
[2017-03-01] MEDS: amLODIPine 5 MG Tab PO SCH ×2 (08:16→19:18)
[2017-03-01] MEDS: Metoprolol Succinate 25 MG Tab.ER PO SCH (08:16)
[2017-03-01] MEDS: Sertraline 50 MG Tab PO SCH (08:17)
[2017-03-01] MEDS: Vitamin E (dl-alpha-tocopherol acetate) 400 Unit Cap PO SCH (11:48)
[2017-03-01] MEDS: Cholecalciferol (Vitamin D3) 1,000 Unit Tab PO SCH (11:48)
[2017-03-01] MEDS: Aspirin 81 MG Tab.EC PO SCH (18:00)
[2017-03-01] MEDS: Pravastatin 20 MG Tab PO SCH (19:18)
[2017-03-01] MEDS: Omeprazole 20 MG Cap.CR PO SCH (19:18)
[2017-03-01] MEDS: Gabapentin 100 MG Cap PO SCH (19:18)
[2017-03-01] MEDS: Isosorbide Mononitrate 30 MG Tab.ER PO SCH (19:18)
[2017-03-02] MEDS: Fenofibrate,Micronized 134 MG Cap PO SCH (07:17)
[2017-03-02] MEDS: Levothyroxine 100 MCG Tab PO SCH (07:17)
[2017-03-02] MEDS: Sertraline 50 MG Tab PO SCH (07:17)
[2017-03-02] MEDS: amLODIPine 5 MG Tab PO SCH ×2 (07:17→19:08)
[2017-03-02] MEDS: Calcium Carbonate/Vitamin D3 1500 MG-400 Units Tab PO SCH (07:17)
[2017-03-02] MEDS: Metoprolol Succinate 25 MG Tab.ER PO SCH (07:17)
[2017-03-02] MEDS: Cholecalciferol (Vitamin D3) 1,000 Unit Tab PO SCH (12:07)
[2017-03-02] MEDS: Vitamin E (dl-alpha-tocopherol acetate) 400 Unit Cap PO SCH (12:07)
[2017-03-02] MEDS: Aspirin 81 MG Tab.EC PO SCH (17:07)
[2017-03-02] MEDS: Omeprazole 20 MG Cap.CR PO SCH (19:07)
[2017-03-02] MEDS: Gabapentin 100 MG Cap PO SCH (19:08)
[2017-03-02] MEDS: Isosorbide Mononitrate 30 MG Tab.ER PO SCH (19:08)
[2017-03-02] MEDS: Pravastatin 20 MG Tab PO SCH (19:08)
[2017-03-03] MEDS: Temazepam 15 MG Cap PO PRN (00:02)
[2017-03-03] MEDS: traMADol 50 MG Tab PO PRN (00:02)
[2017-03-03] MEDS: Calcium Carbonate/Vitamin D3 1500 MG-400 Units Tab PO SCH (07:44)
[2017-03-03] MEDS: amLODIPine 5 MG Tab PO SCH ×2 (07:44→19:30)
[2017-03-03] MEDS: Metoprolol Succinate 25 MG Tab.ER PO SCH (07:44)
[2017-03-03] MEDS: Levothyroxine 100 MCG Tab PO SCH (07:44)
[2017-03-03] MEDS: Fenofibrate,Micronized 134 MG Cap PO SCH (07:44)
[2017-03-03] MEDS: Sertraline 50 MG Tab PO SCH (07:45)
[2017-03-03] MEDS: Vitamin E (dl-alpha-tocopherol acetate) 400 Unit Cap PO SCH (12:18)
[2017-03-03] MEDS: Cholecalciferol (Vitamin D3) 1,000 Unit Tab PO SCH (12:18)
[2017-03-03] MEDS: Aspirin 81 MG Tab.EC PO SCH (17:27)
[2017-03-03] MEDS: Pravastatin 20 MG Tab PO SCH (19:29)
[2017-03-03] MEDS: Omeprazole 20 MG Cap.CR PO SCH (19:29)
[2017-03-03] MEDS: Isosorbide Mononitrate 30 MG Tab.ER PO SCH (19:30)
[2017-03-03] MEDS: Gabapentin 100 MG Cap PO SCH (19:30)
[2017-03-04] MEDS: Levothyroxine 100 MCG Tab PO SCH (06:59)
[2017-03-04] MEDS: Metoprolol Succinate 25 MG Tab.ER PO SCH (08:14)
[2017-03-04] MEDS: Calcium Carbonate/Vitamin D3 1500 MG-400 Units Tab PO SCH (08:14)
[2017-03-04] MEDS: Fenofibrate,Micronized 134 MG Cap PO SCH (08:15)
[2017-03-04] MEDS: amLODIPine 5 MG Tab PO SCH ×2 (08:16→20:08)
[2017-03-04] MEDS: Sertraline 50 MG Tab PO SCH (08:16)
[2017-03-04] MEDS: Cholecalciferol (Vitamin D3) 1,000 Unit Tab PO SCH (11:28)
[2017-03-04] MEDS: Vitamin E (dl-alpha-tocopherol acetate) 400 Unit Cap PO SCH (11:28)
[2017-03-04] MEDS: Aspirin 81 MG Tab.EC PO SCH (17:20)
[2017-03-04] MEDS: Gabapentin 100 MG Cap PO SCH (20:07)
[2017-03-04] MEDS: Omeprazole 20 MG Cap.CR PO SCH (20:07)
[2017-03-04] MEDS: Pravastatin 20 MG Tab PO SCH (20:07)
[2017-03-04] MEDS: traMADol 50 MG Tab PO PRN (20:07)
[2017-03-04] MEDS: Isosorbide Mononitrate 30 MG Tab.ER PO SCH (20:08)
[2017-03-04] MEDS: Temazepam 15 MG Cap PO PRN (23:06)
[2017-03-05] MEDS: Levothyroxine 100 MCG Tab PO SCH (08:22)
[2017-03-05] MEDS: Sertraline 50 MG Tab PO SCH (08:22)
[2017-03-05] MEDS: Calcium Carbonate/Vitamin D3 1500 MG-400 Units Tab PO SCH (08:22)
[2017-03-05] MEDS: Fenofibrate,Micronized 134 MG Cap PO SCH (08:23)
[2017-03-05] MEDS: amLODIPine 5 MG Tab PO SCH ×2 (08:23→20:09)
[2017-03-05] MEDS: Metoprolol Succinate 25 MG Tab.ER PO SCH (08:24)
[2017-03-05] MEDS: Vitamin E (dl-alpha-tocopherol acetate) 400 Unit Cap PO SCH (11:37)
[2017-03-05] MEDS: Cholecalciferol (Vitamin D3) 1,000 Unit Tab PO SCH (11:38)
[2017-03-05] MEDS: Aspirin 81 MG Tab.EC PO SCH (18:00)
[2017-03-05] MEDS: Gabapentin 100 MG Cap PO SCH (20:08)
[2017-03-05] MEDS: Isosorbide Mononitrate 30 MG Tab.ER PO SCH (20:08)
[2017-03-05] MEDS: Omeprazole 20 MG Cap.CR PO SCH (20:09)
[2017-03-05] MEDS: Pravastatin 20 MG Tab PO SCH (20:09)
[2017-03-05] MEDS: Temazepam 15 MG Cap PO PRN (21:41)
[2017-03-06] MEDS: Fenofibrate,Micronized 134 MG Cap PO SCH (07:31)
[2017-03-06] MEDS: amLODIPine 5 MG Tab PO SCH ×2 (07:32→19:49)
[2017-03-06] MEDS: Levothyroxine 100 MCG Tab PO SCH (07:32)
[2017-03-06] MEDS: Metoprolol Succinate 25 MG Tab.ER PO SCH (07:32)
[2017-03-06] MEDS: Calcium Carbonate/Vitamin D3 1500 MG-400 Units Tab PO SCH (07:32)
[2017-03-06] MEDS: Sertraline 50 MG Tab PO SCH (07:32)
[2017-03-06] MEDS: Vitamin E (dl-alpha-tocopherol acetate) 400 Unit Cap PO SCH (11:43)
[2017-03-06] MEDS: Cholecalciferol (Vitamin D3) 1,000 Unit Tab PO SCH (11:43)
[2017-03-06] MEDS: Aspirin 81 MG Tab.EC PO SCH (17:52)
[2017-03-06] MEDS: Omeprazole 20 MG Cap.CR PO SCH (19:49)
[2017-03-06] MEDS: Pravastatin 20 MG Tab PO SCH (19:49)
[2017-03-06] MEDS: Gabapentin 100 MG Cap PO SCH (19:49)
[2017-03-06] MEDS: Isosorbide Mononitrate 30 MG Tab.ER PO SCH (19:50)
[2017-03-06] MEDS: Temazepam 15 MG Cap PO PRN (21:40)
[2017-03-07] MEDS: Fenofibrate,Micronized 134 MG Cap PO SCH (07:22)
[2017-03-07] MEDS: Sertraline 50 MG Tab PO SCH (07:25)
[2017-03-07] MEDS: Calcium Carbonate/Vitamin D3 1500 MG-400 Units Tab PO SCH (07:25)
[2017-03-07] MEDS: amLODIPine 5 MG Tab PO SCH ×2 (07:25→20:25)
[2017-03-07] MEDS: Levothyroxine 100 MCG Tab PO SCH (07:25)
[2017-03-07] MEDS: Metoprolol Succinate 25 MG Tab.ER PO SCH (07:25)
[2017-03-07] MEDS: Vitamin E (dl-alpha-tocopherol acetate) 400 Unit Cap PO SCH (11:25)
[2017-03-07] MEDS: Cholecalciferol (Vitamin D3) 1,000 Unit Tab PO SCH (11:25)
[2017-03-07] MEDS: Aspirin 81 MG Tab.EC PO SCH (17:31)
[2017-03-07] MEDS: Temazepam 15 MG Cap PO PRN (20:25)
[2017-03-07] MEDS: Omeprazole 20 MG Cap.CR PO SCH (20:25)
[2017-03-07] MEDS: Isosorbide Mononitrate 30 MG Tab.ER PO SCH (20:25)
[2017-03-07] MEDS: Pravastatin 20 MG Tab PO SCH (20:25)
[2017-03-07] MEDS: Gabapentin 100 MG Cap PO SCH (20:26)
[2017-03-08] MEDS: Levothyroxine 100 MCG Tab PO SCH (07:31)
[2017-03-08] MEDS: Fenofibrate,Micronized 134 MG Cap PO SCH (07:32)
[2017-03-08] MEDS: Calcium Carbonate/Vitamin D3 1500 MG-400 Units Tab PO SCH (07:32)
[2017-03-08] MEDS: Metoprolol Succinate 25 MG Tab.ER PO SCH (07:35)
[2017-03-08] MEDS: Sertraline 50 MG Tab PO SCH (07:35)
[2017-03-08] MEDS: amLODIPine 5 MG Tab PO SCH ×2 (07:35→20:16)
[2017-03-08] MEDS: Cholecalciferol (Vitamin D3) 1,000 Unit Tab PO SCH (11:55)
[2017-03-08] MEDS: Vitamin E (dl-alpha-tocopherol acetate) 400 Unit Cap PO SCH (11:56)
[2017-03-08] MEDS: Aspirin 81 MG Tab.EC PO SCH (17:23)
[2017-03-08] MEDS: Omeprazole 20 MG Cap.CR PO SCH (20:14)
[2017-03-08] MEDS: Pravastatin 20 MG Tab PO SCH (20:14)
[2017-03-08] MEDS: Isosorbide Mononitrate 30 MG Tab.ER PO SCH (20:14)
[2017-03-08] MEDS: Gabapentin 100 MG Cap PO SCH (20:16)
[2017-03-08] MEDS: Temazepam 15 MG Cap PO PRN (20:16)
[2017-03-09] MEDS: Fenofibrate,Micronized 134 MG Cap PO SCH (07:59)
[2017-03-09] MEDS: Calcium Carbonate/Vitamin D3 1500 MG-400 Units Tab PO SCH (07:59)
[2017-03-09] MEDS: Levothyroxine 100 MCG Tab PO SCH (07:59)
[2017-03-09] MEDS: amLODIPine 5 MG Tab PO SCH ×2 (08:02→19:16)
[2017-03-09] MEDS: Metoprolol Succinate 25 MG Tab.ER PO SCH (08:02)
[2017-03-09] MEDS: Sertraline 50 MG Tab PO SCH (08:11)
[2017-03-09] MEDS: Cholecalciferol (Vitamin D3) 1,000 Unit Tab PO SCH (11:38)
[2017-03-09] MEDS: Vitamin E (dl-alpha-tocopherol acetate) 400 Unit Cap PO SCH (11:38)
[2017-03-09] MEDS: Aspirin 81 MG Tab.EC PO SCH (17:28)
[2017-03-09] MEDS: Isosorbide Mononitrate 30 MG Tab.ER PO SCH (19:16)
[2017-03-09] MEDS: Gabapentin 100 MG Cap PO SCH (19:16)
[2017-03-09] MEDS: Pravastatin 20 MG Tab PO SCH (19:16)
[2017-03-09] MEDS: Omeprazole 20 MG Cap.CR PO SCH (19:16)
[2017-03-10] MEDS: Calcium Carbonate/Vitamin D3 1500 MG-400 Units Tab PO SCH (07:17)
[2017-03-10] MEDS: amLODIPine 5 MG Tab PO SCH ×2 (07:17→19:07)
[2017-03-10] MEDS: Levothyroxine 100 MCG Tab PO SCH (07:17)
[2017-03-10] MEDS: Metoprolol Succinate 25 MG Tab.ER PO SCH (07:17)
[2017-03-10] MEDS: Sertraline 50 MG Tab PO SCH (07:17)
[2017-03-10] MEDS: Fenofibrate,Micronized 134 MG Cap PO SCH (07:17)
[2017-03-10] MEDS: Cholecalciferol (Vitamin D3) 1,000 Unit Tab PO SCH (11:56)
[2017-03-10] MEDS: Vitamin E (dl-alpha-tocopherol acetate) 400 Unit Cap PO SCH (11:56)
[2017-03-10] MEDS: Aspirin 81 MG Tab.EC PO SCH (17:12)
[2017-03-10] MEDS: Pravastatin 20 MG Tab PO SCH (19:07)
[2017-03-10] MEDS: Gabapentin 100 MG Cap PO SCH (19:07)
[2017-03-10] MEDS: Omeprazole 20 MG Cap.CR PO SCH (19:07)
[2017-03-10] MEDS: Isosorbide Mononitrate 30 MG Tab.ER PO SCH (19:11)
[2017-03-11] MEDS: Metoprolol Succinate 25 MG Tab.ER PO SCH (07:42)
[2017-03-11] MEDS: Levothyroxine 100 MCG Tab PO SCH (07:43)
[2017-03-11] MEDS: Fenofibrate,Micronized 134 MG Cap PO SCH (07:43)
[2017-03-11] MEDS: amLODIPine 5 MG Tab PO SCH ×2 (07:44→19:36)
[2017-03-11] MEDS: Calcium Carbonate/Vitamin D3 1500 MG-400 Units Tab PO SCH (07:44)
[2017-03-11] MEDS: Sertraline 50 MG Tab PO SCH (07:44)
[2017-03-11] MEDS: Vitamin E (dl-alpha-tocopherol acetate) 400 Unit Cap PO SCH (12:10)
[2017-03-11] MEDS: Cholecalciferol (Vitamin D3) 1,000 Unit Tab PO SCH (12:10)
[2017-03-11] MEDS: Aspirin 81 MG Tab.EC PO SCH (17:59)
[2017-03-11] MEDS: Omeprazole 20 MG Cap.CR PO SCH (19:34)
[2017-03-11] MEDS: Gabapentin 100 MG Cap PO SCH (19:34)
[2017-03-11] MEDS: Pravastatin 20 MG Tab PO SCH (19:34)
[2017-03-11] MEDS: Isosorbide Mononitrate 30 MG Tab.ER PO SCH (19:36)
[2017-03-12] MEDS: Metoprolol Succinate 25 MG Tab.ER PO SCH (07:17)
[2017-03-12] MEDS: Fenofibrate,Micronized 134 MG Cap PO SCH (07:17)
[2017-03-12] MEDS: Calcium Carbonate/Vitamin D3 1500 MG-400 Units Tab PO SCH (07:17)
[2017-03-12] MEDS: Sertraline 50 MG Tab PO SCH (07:17)
[2017-03-12] MEDS: amLODIPine 5 MG Tab PO SCH ×2 (07:17→19:16)
[2017-03-12] MEDS: Levothyroxine 100 MCG Tab PO SCH (07:18)
[2017-03-12] MEDS: Cholecalciferol (Vitamin D3) 1,000 Unit Tab PO SCH (11:39)
[2017-03-12] MEDS: Vitamin E (dl-alpha-tocopherol acetate) 400 Unit Cap PO SCH (11:39)
--- NOTE | 2017-03-12 13:47 | PCM.PN ---
- General Info Date of Service: 03/12/17 Admission Dx/Problem (Free Text): Admission Diagnosis/Problem Admission Diagnosis/Problem Fall at home Functional Status: Reports: Pain Controlled Pain Score: 1 - Review of Systems General: Reports: Weakness HEENT: Reports: No Symptoms Pulmonary: Reports: No Symptoms Cardiovascular: Reports: No Symptoms Gastrointestinal: Reports: No Symptoms Genitourinary: Reports: No Symptoms Musculoskeletal: Reports: Leg Pain (right knee pain) Skin: Reports: No Symptoms Neurological: Reports: No Symptoms Psychiatric: Reports: No Symptoms - Patient Data Vitals - Most Recent: Last Vital Signs Temp 98.0 F 03/12/17 07:11 Pulse 95 03/12/17 07:17 Resp 16 03/12/17 07:11 BP 156/62 H 03/12/17 07:17 Pulse Ox 93 L 03/12/17 07:11 Weight - Most Recent: 136 lb 12.8 oz I&O - Last 24 Hours: Intake & Output 03/11/17 03/12/17 03/12/17 22:59 06:59 14:59 Intake Total 360 150 240 Balance 360 150 240 Med Orders - Current: Current Medications Acetaminophen (Tylenol) 650 mg PO Q4HR PRN PRN Reason: Pain Last Admin: 02/28/17 01:21 Dose: 650 mg Albuterol (Proventil Neb Soln) 2.5 mg NEB Q2HR PRN PRN Reason: Dyspnea Albuterol/Ipratropium (Duoneb 3.0-0.5 Mg/3 Ml) 3 ml NEB Q4HRRT PRN PRN Reason: Dyspnea Amlodipine Besylate (Norvasc) 5 mg PO Q12HR [facility] Last Admin: 03/12/17 07:17 Dose: 5 mg Aspirin (Halfprin) 81 mg PO DAILY@1800 [facility] Last Admin: 03/11/17 17:59 Dose: 81 mg Calcium Carbonate (Caltrate 600+D 1500 Mg-400 Units) 1 tab PO DAILY [facility] Last Admin: 03/12/17 07:17 Dose: 1 tab Cholecalciferol (Vitamin D3) 3,000 units PO DAILY@1200 [facility] Last Admin: 03/12/17 11:39 Dose: 3,000 units Docusate Sodium (Colace) 100 mg PO BID PRN PRN Reason: Constipation Last Admin: 02/27/17 08:27 Dose: 100 mg Fenofibrate (Fenofibrate) 134 mg PO DAILY [facility] Last Admin: 03/12/17 07:17 Dose: 134 mg Gabapentin (Neurontin) 100 mg PO BEDTIME [facility] Last Admin: 03/11/17 19:34 Dose: 100 mg Isosorbide Mononitrate (Imdur) 30 mg PO BEDTIME [facility] Last Admin: 03/11/17 19:36 Dose: 30 mg Levothyroxine Sodium (Synthroid) 100 mcg PO ACBREAKFAST [facility] Last Admin: 03/12/17 07:18 Dose: 100 mcg Magnesium Hydroxide (Milk Of Magnesia) 30 ml PO ASDIRECTED PRN PRN Reason: Constipation Last Admin: 03/05/17 08:27 Dose: 30 ml Metoprolol Succinate (Toprol Xl) 25 mg PO DAILY [facility] Last Admin: 03/12/17 07:17 Dose: 25 mg Omeprazole (Omeprazole) 20 mg PO BEDTIME [facility] Last Admin: 03/11/17 19:34 Dose: 20 mg Pravastatin Sodium (Pravachol) 20 mg PO BEDTIME [facility] Last Admin: 03/11/17 19:34 Dose: 20 mg Sertraline HCl (Zoloft) 50 mg PO DAILY [facility] Last Admin: 03/12/17 07:17 Dose: 50 mg Temazepam (Restoril) 15 mg PO BEDTIME PRN PRN Reason: Insomnia Last Admin: 03/08/17 20:16 Dose: 15 mg Tramadol HCl (Ultram) 50 mg PO Q6H PRN PRN Reason: Pain Last Admin: 03/04/17 20:07 Dose: 50 mg Vitamin E (Vitamin E) 400 units PO DAILY@1200 [facility] Last Admin: 03/12/17 11:39 Dose: 400 units Discontinued Medications Cholecalciferol (Vitamin D3) 3,000 units PO 1200 [facility] Last Admin: 02/22/17 11:36 Dose: 3,000 units Doxazosin Mesylate (Cardura) 2 mg PO Q12HR [facility] Last Admin: 02/25/17 08:28 Dose: 2 mg Furosemide (Lasix) 20 mg PO DAILY [facility] Furosemide (Lasix) 20 mg PO DAILY@1200 [facility] Last Admin: 02/24/17 11:20 Dose: 20 mg Isosorbide Mononitrate (Imdur) 30 mg PO BEDTIME [facility] Last Admin: 02/23/17 19:07 Dose: 30 mg Isosorbide Mononitrate (Imdur) 60 mg PO BEDTIME [facility] Last Admin: 02/24/17 20:31 Dose: 60 mg Lisinopril (Prinivil) 10 mg PO DAILY [facility] Last Admin: 02/22/17 08:09 Dose: 10 mg Lisinopril (Prinivil) 10 mg PO Q12HR [facility] Last Admin: 02/24/17 07:55 Dose: 10 mg Pravastatin Sodium (Pravachol) 20 mg PO DAILY [facility] - Exam General: Alert, Oriented, Cooperative, No Acute Distress HEENT: Pupils Equal Neck: Supple Lungs: Clear to Auscultation, Normal Respiratory Effort Cardiovascular: Regular Rate, Regular Rhythm GI/Abdominal Exam: Normal Bowel Sounds, Soft, Non-Tender, No Organomegaly, No Distention Extremities: Normal Capillary Refill, Other (pain to palpation to lateral patella area, pain with passive ROM to right knee) Peripheral Pulses: 1+: Dorsalis Pedis (L), Dorsalis Pedis (R) Skin: Warm, Dry, Intact Neurological: No New Focal Deficit, Cranial Nerves Intact Psy/Mental Status: Alert, Normal Mood - Problem List & Annotations (1) Tibial plateau fracture, right SNOMED Code(s): 260586688 Code(s): S82.141A - DISPLACED BICONDYLAR FRACTURE OF RIGHT TIBIA, INIT Status: Acute Priority: High Current Visit: No Onset Date: 02/16/17 Qualifiers: Encounter type: initial encounter Fracture type: closed Qualified Code(s) : S82.141A - Displaced bicondylar fracture of right tibia, initial encounter for closed fracture Annotation/Comment:: Start to increase in activity, patient fell on 02/15/2017 (2) Hypertension SNOMED Code(s): 34742151 Code(s): I10 - ESSENTIAL (PRIMARY) HYPERTENSION Status: Chronic Priority : Medium Current Visit: No Qualifiers: Hypertension type: essential hypertension Qualified Code(s): I10 - Essential (primary) hypertension Annotation/Comment:: Continue on current blood pressure measures. - Problem List Review Problem List Initiated/Reviewed/Updated: Yes - Plan Plan:: 02/20/17 Brent Butler MD Recent fall at home. Right tibial plateau fracture. Inpatient hospitalized with IV toradol. Now she requires swing bed status for PT-OT. 03/12/2017 Patient is anxious to get back home. PT working with the patient, discussed with physical therapy the patient's progress. Will start to slowly advance activity with toe touch to right when up with brace on at all times. If patient develops pain with toe touch will need to make modifications with activity. Patient was in the tub and did ROM , states knee felt great in the water. XRay from 03/08/2017 reviewed. Goal to discharge the patient back to her home when physical therapist feels the patient is ready. Janice Rutherford,[employer]AY[employer] WORKER
[2017-03-12] MEDS: Aspirin 81 MG Tab.EC PO SCH (17:02)
[2017-03-12] MEDS: Omeprazole 20 MG Cap.CR PO SCH (19:13)
[2017-03-12] MEDS: Pravastatin 20 MG Tab PO SCH (19:13)
[2017-03-12] MEDS: Gabapentin 100 MG Cap PO SCH (19:14)
[2017-03-12] MEDS: Isosorbide Mononitrate 30 MG Tab.ER PO SCH (19:16)
[2017-03-13] MEDS: Levothyroxine 100 MCG Tab PO SCH (07:20)
[2017-03-13] MEDS: Fenofibrate,Micronized 134 MG Cap PO SCH (07:20)
[2017-03-13] MEDS: Sertraline 50 MG Tab PO SCH (07:20)
[2017-03-13] MEDS: Acetaminophen 325 MG Tab PO PRN ×2 (07:21→19:52)
[2017-03-13] MEDS: Calcium Carbonate/Vitamin D3 1500 MG-400 Units Tab PO SCH (07:21)
[2017-03-13] MEDS: amLODIPine 5 MG Tab PO SCH ×2 (07:22→19:59)
[2017-03-13] MEDS: Metoprolol Succinate 25 MG Tab.ER PO SCH (07:24)
[2017-03-13] MEDS: Vitamin E (dl-alpha-tocopherol acetate) 400 Unit Cap PO SCH (11:35)
[2017-03-13] MEDS: Cholecalciferol (Vitamin D3) 1,000 Unit Tab PO SCH (11:35)
[2017-03-13] MEDS: Aspirin 81 MG Tab.EC PO SCH (17:41)
[2017-03-13] MEDS: Omeprazole 20 MG Cap.CR PO SCH (19:53)
[2017-03-13] MEDS: Temazepam 15 MG Cap PO PRN (19:53)
[2017-03-13] MEDS: Pravastatin 20 MG Tab PO SCH (19:54)
[2017-03-13] MEDS: Gabapentin 100 MG Cap PO SCH (19:55)
[2017-03-13] MEDS: Isosorbide Mononitrate 30 MG Tab.ER PO SCH (19:58)
[2017-03-14] MEDS: Levothyroxine 100 MCG Tab PO SCH (08:01)
[2017-03-14] MEDS: Sertraline 50 MG Tab PO SCH (08:01)
[2017-03-14] MEDS: Fenofibrate,Micronized 134 MG Cap PO SCH (08:02)
[2017-03-14] MEDS: Calcium Carbonate/Vitamin D3 1500 MG-400 Units Tab PO SCH (08:02)
[2017-03-14] MEDS: Metoprolol Succinate 25 MG Tab.ER PO SCH (08:07)
[2017-03-14] MEDS: amLODIPine 5 MG Tab PO SCH ×2 (08:07→20:10)
[2017-03-14] MEDS: Cholecalciferol (Vitamin D3) 1,000 Unit Tab PO SCH (11:39)
[2017-03-14] MEDS: Vitamin E (dl-alpha-tocopherol acetate) 400 Unit Cap PO SCH (11:39)
[2017-03-14] MEDS: Aspirin 81 MG Tab.EC PO SCH (17:17)
[2017-03-14] MEDS: Omeprazole 20 MG Cap.CR PO SCH (20:10)
[2017-03-14] MEDS: Pravastatin 20 MG Tab PO SCH (20:10)
[2017-03-14] MEDS: Isosorbide Mononitrate 30 MG Tab.ER PO SCH (20:10)
[2017-03-14] MEDS: Gabapentin 100 MG Cap PO SCH (20:10)
[2017-03-14] MEDS: Acetaminophen 325 MG Tab PO PRN (20:11)
[2017-03-15] MEDS: Sertraline 50 MG Tab PO SCH (07:48)
[2017-03-15] MEDS: Levothyroxine 100 MCG Tab PO SCH (07:48)
[2017-03-15] MEDS: Metoprolol Succinate 25 MG Tab.ER PO SCH (07:48)
[2017-03-15] MEDS: Fenofibrate,Micronized 134 MG Cap PO SCH (07:48)
[2017-03-15] MEDS: Calcium Carbonate/Vitamin D3 1500 MG-400 Units Tab PO SCH (07:48)
[2017-03-15] MEDS: amLODIPine 5 MG Tab PO SCH ×2 (07:48→19:09)
[2017-03-15] MEDS: Vitamin E (dl-alpha-tocopherol acetate) 400 Unit Cap PO SCH (12:05)
[2017-03-15] MEDS: Cholecalciferol (Vitamin D3) 1,000 Unit Tab PO SCH (12:05)
[2017-03-15] MEDS: Aspirin 81 MG Tab.EC PO SCH (17:20)
[2017-03-15] MEDS: Gabapentin 100 MG Cap PO SCH (19:08)
[2017-03-15] MEDS: Isosorbide Mononitrate 30 MG Tab.ER PO SCH (19:08)
[2017-03-15] MEDS: Pravastatin 20 MG Tab PO SCH (19:09)
[2017-03-15] MEDS: Omeprazole 20 MG Cap.CR PO SCH (19:09)
[2017-03-15] MEDS: Acetaminophen 325 MG Tab PO PRN (20:15)
[2017-03-16] MEDS: Sertraline 50 MG Tab PO SCH (07:37)
[2017-03-16] MEDS: Fenofibrate,Micronized 134 MG Cap PO SCH (07:37)
[2017-03-16] MEDS: Calcium Carbonate/Vitamin D3 1500 MG-400 Units Tab PO SCH (07:37)
[2017-03-16] MEDS: amLODIPine 5 MG Tab PO SCH ×2 (07:38→19:32)
[2017-03-16] MEDS: Metoprolol Succinate 25 MG Tab.ER PO SCH (07:38)
[2017-03-16] MEDS: Levothyroxine 100 MCG Tab PO SCH (07:38)
[2017-03-16] MEDS: Cholecalciferol (Vitamin D3) 1,000 Unit Tab PO SCH (11:29)
[2017-03-16] MEDS: Vitamin E (dl-alpha-tocopherol acetate) 400 Unit Cap PO SCH (11:29)
[2017-03-16] MEDS: Aspirin 81 MG Tab.EC PO SCH (17:12)
[2017-03-16] MEDS: Gabapentin 100 MG Cap PO SCH (19:31)
[2017-03-16] MEDS: Pravastatin 20 MG Tab PO SCH (19:31)
[2017-03-16] MEDS: Omeprazole 20 MG Cap.CR PO SCH (19:32)
[2017-03-16] MEDS: Isosorbide Mononitrate 30 MG Tab.ER PO SCH (19:32)
[2017-03-17] MEDS: Sertraline 50 MG Tab PO SCH (07:47)
[2017-03-17] MEDS: Calcium Carbonate/Vitamin D3 1500 MG-400 Units Tab PO SCH (07:47)
[2017-03-17] MEDS: amLODIPine 5 MG Tab PO SCH ×2 (07:47→19:08)
[2017-03-17] MEDS: Fenofibrate,Micronized 134 MG Cap PO SCH (07:47)
[2017-03-17] MEDS: Levothyroxine 100 MCG Tab PO SCH (07:47)
[2017-03-17] MEDS: Metoprolol Succinate 25 MG Tab.ER PO SCH (07:48)
[2017-03-17] MEDS: Vitamin E (dl-alpha-tocopherol acetate) 400 Unit Cap PO SCH (11:33)
[2017-03-17] MEDS: Cholecalciferol (Vitamin D3) 1,000 Unit Tab PO SCH (11:33)
[2017-03-17] MEDS: Aspirin 81 MG Tab.EC PO SCH (17:28)
[2017-03-17] MEDS: Isosorbide Mononitrate 30 MG Tab.ER PO SCH (19:05)
[2017-03-17] MEDS: Omeprazole 20 MG Cap.CR PO SCH (19:05)
[2017-03-17] MEDS: Pravastatin 20 MG Tab PO SCH (19:05)
[2017-03-17] MEDS: Gabapentin 100 MG Cap PO SCH (19:05)
[2017-03-18] MEDS: Metoprolol Succinate 25 MG Tab.ER PO SCH (07:32)
[2017-03-18] MEDS: Calcium Carbonate/Vitamin D3 1500 MG-400 Units Tab PO SCH (07:32)
[2017-03-18] MEDS: amLODIPine 5 MG Tab PO SCH ×2 (07:33→19:14)
[2017-03-18] MEDS: Fenofibrate,Micronized 134 MG Cap PO SCH (07:33)
[2017-03-18] MEDS: Sertraline 50 MG Tab PO SCH (07:33)
[2017-03-18] MEDS: Levothyroxine 100 MCG Tab PO SCH (07:33)
[2017-03-18] MEDS: Cholecalciferol (Vitamin D3) 1,000 Unit Tab PO SCH (11:41)
[2017-03-18] MEDS: Vitamin E (dl-alpha-tocopherol acetate) 400 Unit Cap PO SCH (11:42)
[2017-03-18] MEDS: Docusate Sodium 100 MG Cap PO PRN (17:55)
[2017-03-18] MEDS: Aspirin 81 MG Tab.EC PO SCH (17:56)
[2017-03-18] MEDS: Isosorbide Mononitrate 30 MG Tab.ER PO SCH (19:14)
[2017-03-18] MEDS: Gabapentin 100 MG Cap PO SCH (19:14)
[2017-03-18] MEDS: Pravastatin 20 MG Tab PO SCH (19:14)
[2017-03-18] MEDS: Omeprazole 20 MG Cap.CR PO SCH (19:14)
[2017-03-19] MEDS: Fenofibrate,Micronized 134 MG Cap PO SCH (07:26)
[2017-03-19] MEDS: amLODIPine 5 MG Tab PO SCH ×2 (07:26→19:12)
[2017-03-19] MEDS: Metoprolol Succinate 25 MG Tab.ER PO SCH (07:26)
[2017-03-19] MEDS: Levothyroxine 100 MCG Tab PO SCH (07:26)
[2017-03-19] MEDS: Calcium Carbonate/Vitamin D3 1500 MG-400 Units Tab PO SCH (07:27)
[2017-03-19] MEDS: Sertraline 50 MG Tab PO SCH (07:27)
[2017-03-19] MEDS: Vitamin E (dl-alpha-tocopherol acetate) 400 Unit Cap PO SCH (12:02)
[2017-03-19] MEDS: Cholecalciferol (Vitamin D3) 1,000 Unit Tab PO SCH (12:02)
[2017-03-19] MEDS: Aspirin 81 MG Tab.EC PO SCH (18:00)
[2017-03-19] MEDS: Omeprazole 20 MG Cap.CR PO SCH (19:11)
[2017-03-19] MEDS: Gabapentin 100 MG Cap PO SCH (19:11)
[2017-03-19] MEDS: Pravastatin 20 MG Tab PO SCH (19:12)
[2017-03-19] MEDS: Isosorbide Mononitrate 30 MG Tab.ER PO SCH (19:14)
[2017-03-20] MEDS: Metoprolol Succinate 25 MG Tab.ER PO SCH (07:38)
[2017-03-20] MEDS: Fenofibrate,Micronized 134 MG Cap PO SCH (07:39)
[2017-03-20] MEDS: amLODIPine 5 MG Tab PO SCH ×2 (07:39→20:05)
[2017-03-20] MEDS: Levothyroxine 100 MCG Tab PO SCH (07:39)
[2017-03-20] MEDS: Calcium Carbonate/Vitamin D3 1500 MG-400 Units Tab PO SCH (07:39)
[2017-03-20] MEDS: Sertraline 50 MG Tab PO SCH (07:39)
[2017-03-20] MEDS: Cholecalciferol (Vitamin D3) 1,000 Unit Tab PO SCH (11:47)
[2017-03-20] MEDS: Vitamin E (dl-alpha-tocopherol acetate) 400 Unit Cap PO SCH (11:47)
[2017-03-20] MEDS: Aspirin 81 MG Tab.EC PO SCH (17:14)
[2017-03-20] MEDS: Gabapentin 100 MG Cap PO SCH (20:04)
[2017-03-20] MEDS: Isosorbide Mononitrate 30 MG Tab.ER PO SCH (20:04)
[2017-03-20] MEDS: Omeprazole 20 MG Cap.CR PO SCH (20:05)
[2017-03-20] MEDS: Pravastatin 20 MG Tab PO SCH (20:05)
[2017-03-21] MEDS: Levothyroxine 100 MCG Tab PO SCH (08:00)
[2017-03-21] MEDS: Fenofibrate,Micronized 134 MG Cap PO SCH (08:00)
[2017-03-21] MEDS: Calcium Carbonate/Vitamin D3 1500 MG-400 Units Tab PO SCH (08:00)
[2017-03-21] MEDS: Metoprolol Succinate 25 MG Tab.ER PO SCH (08:01)
[2017-03-21] MEDS: amLODIPine 5 MG Tab PO SCH ×2 (08:01→19:30)
[2017-03-21] MEDS: Sertraline 50 MG Tab PO SCH (08:02)
[2017-03-21] MEDS: Vitamin E (dl-alpha-tocopherol acetate) 400 Unit Cap PO SCH (12:05)
[2017-03-21] MEDS: Cholecalciferol (Vitamin D3) 1,000 Unit Tab PO SCH (12:05)
[2017-03-21] MEDS: Aspirin 81 MG Tab.EC PO SCH (18:02)
[2017-03-21] MEDS: Omeprazole 20 MG Cap.CR PO SCH (19:27)
[2017-03-21] MEDS: Pravastatin 20 MG Tab PO SCH (19:27)
[2017-03-21] MEDS: Isosorbide Mononitrate 30 MG Tab.ER PO SCH (19:31)
[2017-03-21] MEDS: Gabapentin 100 MG Cap PO SCH (19:35)
[2017-03-22] MEDS: Levothyroxine 100 MCG Tab PO SCH (07:30)
[2017-03-22] MEDS: Metoprolol Succinate 25 MG Tab.ER PO SCH (07:30)
[2017-03-22] MEDS: Fenofibrate,Micronized 134 MG Cap PO SCH (07:30)
[2017-03-22] MEDS: Calcium Carbonate/Vitamin D3 1500 MG-400 Units Tab PO SCH (07:30)
[2017-03-22] MEDS: amLODIPine 5 MG Tab PO SCH (07:32)
[2017-03-22] MEDS: Sertraline 50 MG Tab PO SCH (07:32)
[2017-03-22 07:33] VITALS: BP 155/80
[2017-03-22] MEDS: Vitamin E (dl-alpha-tocopherol acetate) 400 Unit Cap PO SCH (12:31)
[2017-03-22] MEDS: Cholecalciferol (Vitamin D3) 1,000 Unit Tab PO SCH (12:31)
--- NOTE | 2017-03-22 14:58 | PCM.PN ---
- General Info Date of Service: 03/22/17 Admission Dx/Problem (Free Text): Admission Diagnosis/Problem Admission Diagnosis/Problem Fall at home Functional Status: Reports: Pain Controlled - Review of Systems General: Reports: No Symptoms HEENT: Reports: No Symptoms Pulmonary: Reports: No Symptoms Cardiovascular: Reports: Edema Gastrointestinal: Reports: No Symptoms Genitourinary: Reports: No Symptoms Musculoskeletal: Reports: No Symptoms Skin: Reports: No Symptoms Neurological: Reports: No Symptoms Psychiatric: Reports: No Symptoms - Patient Data Vitals - Most Recent: Last Vital Signs Temp 97 F 03/22/17 08:00 Pulse 64 03/22/17 08:00 Resp 17 03/22/17 08:00 BP 155/80 H 03/22/17 08:00 Pulse Ox 93 L 03/21/17 20:00 Weight - Most Recent: 136 lb 9.6 oz I&O - Last 24 Hours: Intake & Output 03/21/17 03/22/17 03/22/17 22:59 06:59 14:59 Intake Total 100 720 Balance 100 720 Med Orders - Current: Current Medications Acetaminophen (Tylenol) 650 mg PO Q4HR PRN PRN Reason: Pain Last Admin: 03/15/17 20:15 Dose: 650 mg Albuterol (Proventil Neb Soln) 2.5 mg NEB Q2HR PRN PRN Reason: Dyspnea Albuterol/Ipratropium (Duoneb 3.0-0.5 Mg/3 Ml) 3 ml NEB Q4HRRT PRN PRN Reason: Dyspnea Amlodipine Besylate (Norvasc) 5 mg PO Q12HR [facility] Last Admin: 03/22/17 07:32 Dose: 5 mg Aspirin (Halfprin) 81 mg PO DAILY@1800 [facility] Last Admin: 03/21/17 18:02 Dose: 81 mg Calcium Carbonate (Caltrate 600+D 1500 Mg-400 Units) 1 tab PO DAILY [facility] Last Admin: 03/22/17 07:30 Dose: 1 tab Cholecalciferol (Vitamin D3) 3,000 units PO DAILY@1200 [facility] Last Admin: 03/22/17 12:31 Dose: 3,000 units Docusate Sodium (Colace) 100 mg PO BID PRN PRN Reason: Constipation Last Admin: 03/18/17 17:55 Dose: 100 mg Fenofibrate (Fenofibrate) 134 mg PO DAILY [facility] Last Admin: 03/22/17 07:30 Dose: 134 mg Gabapentin (Neurontin) 100 mg PO BEDTIME [facility] Last Admin: 03/21/17 19:35 Dose: 100 mg Isosorbide Mononitrate (Imdur) 30 mg PO BEDTIME [facility] Last Admin: 03/21/17 19:31 Dose: 30 mg Levothyroxine Sodium (Synthroid) 100 mcg PO ACBREAKFAST [facility] Last Admin: 03/22/17 07:30 Dose: 100 mcg Magnesium Hydroxide (Milk Of Magnesia) 30 ml PO ASDIRECTED PRN PRN Reason: Constipation Last Admin: 03/05/17 08:27 Dose: 30 ml Metoprolol Succinate (Toprol Xl) 25 mg PO DAILY [facility] Last Admin: 03/22/17 07:30 Dose: 25 mg Omeprazole (Omeprazole) 20 mg PO BEDTIME [facility] Last Admin: 03/21/17 19:27 Dose: 20 mg Pravastatin Sodium (Pravachol) 20 mg PO BEDTIME [facility] Last Admin: 03/21/17 19:27 Dose: 20 mg Sertraline HCl (Zoloft) 50 mg PO DAILY [facility] Last Admin: 03/22/17 07:32 Dose: 50 mg Temazepam (Restoril) 15 mg PO BEDTIME PRN PRN Reason: Insomnia Last Admin: 03/13/17 19:53 Dose: 15 mg Tramadol HCl (Ultram) 50 mg PO Q6H PRN PRN Reason: Pain Last Admin: 03/04/17 20:07 Dose: 50 mg Vitamin E (Vitamin E) 400 units PO DAILY@1200 [facility] Last Admin: 03/22/17 12:31 Dose: 400 units Discontinued Medications Cholecalciferol (Vitamin D3) 3,000 units PO 1200 [facility] Last Admin: 02/22/17 11:36 Dose: 3,000 units Doxazosin Mesylate (Cardura) 2 mg PO Q12HR [facility] Last Admin: 02/25/17 08:28 Dose: 2 mg Furosemide (Lasix) 20 mg PO DAILY [facility] Furosemide (Lasix) 20 mg PO DAILY@1200 [facility] Last Admin: 02/24/17 11:20 Dose: 20 mg Isosorbide Mononitrate (Imdur) 30 mg PO BEDTIME [facility] Last Admin: 02/23/17 19:07 Dose: 30 mg Isosorbide Mononitrate (Imdur) 60 mg PO BEDTIME [facility] Last Admin: 02/24/17 20:31 Dose: 60 mg Lisinopril (Prinivil) 10 mg PO DAILY [facility] Last Admin: 02/22/17 08:09 Dose: 10 mg Lisinopril (Prinivil) 10 mg PO Q12HR [facility] Last Admin: 02/24/17 07:55 Dose: 10 mg Pravastatin Sodium (Pravachol) 20 mg PO DAILY [facility] - Exam General: Alert, Cooperative, No Acute Distress HEENT: Pupils Equal, Pupils Reactive, EOMI, Mucous Membr. Moist/[place] Neck: Trachea Midline, No JVD Lungs: Clear to Auscultation, Normal Respiratory Effort Cardiovascular: Regular Rate, Regular Rhythm GI/Abdominal Exam: Normal Bowel Sounds, Soft, Non-Tender, No Distention, Pelvis Stable (Female) Exam: Deferred Back Exam: Other (kyphosis) Extremities: Normal Inspection, Pedal Edema, Other (right knee immobilizer) Skin: Warm, Dry, Intact Neurological: No New Focal Deficit Psy/Mental Status: Alert, Normal Affect, Normal Mood - Problem List & Annotations (1) Tibial plateau fracture, right SNOMED Code(s): 563186875 Code(s): S82.141A - DISPLACED BICONDYLAR FRACTURE OF RIGHT TIBIA, INIT Status: Acute Priority: High Current Visit: No Onset Date: 02/16/17 Qualifiers: Encounter type: initial encounter Fracture type: closed Qualified Code(s) : S82.141A - Displaced bicondylar fracture of right tibia, initial encounter for closed fracture Annotation/Comment:: Start to increase in activity, patient fell on 02/15/2017 (2) COPD (chronic obstructive pulmonary disease) SNOMED Code(s): 03040082 Code(s): J44.9 - CHRONIC OBSTRUCTIVE PULMONARY DISEASE, UNSPECIFIED Status : Chronic Priority: Medium Current Visit: No Qualifiers: COPD type: emphysema Emphysema type: panlobular Qualified Code(s): J43.1 - Panlobular emphysema Annotation/Comment:: Stable by history with no recent fever or bronchitic type symptoms (3) Coronary artery disease SNOMED Code(s): 62270358 Code(s): I25.10 - ATHSCL HEART DISEASE OF [place] CORONARY ARTERY W/O ANG PCTRS Status: Chronic Priority: Medium Current Visit: No Qualifiers: Coronary Disease-Associated Artery/Lesion type: [place] artery [place] vs. transplanted heart: [place] heart Associated angina: without angina Qualified Code(s): I25.10 - Atherosclerotic heart disease of [place] coronary artery without angina pectoris Annotation/Comment:: No recent chest pain or anginal type symptoms. Note status post previous third-degree block with multiple pacemaker placements as above (4) Hypertension SNOMED Code(s): 10893588 Code(s): I10 - ESSENTIAL (PRIMARY) HYPERTENSION Status: Chronic Priority : Medium Current Visit: No Qualifiers: Hypertension type: essential hypertension Qualified Code(s): I10 - Essential (primary) hypertension Annotation/Comment:: Continue on current blood pressure measures. (5) Mixed anxiety depressive disorder SNOMED Code(s): 647720603 Code(s): F41.8 - OTHER SPECIFIED ANXIETY DISORDERS Status: Chronic Priority: Medium Current Visit: No Annotation/Comment:: Stable by history (6) Osteoarthritis SNOMED Code(s): 979513328 Code(s): M19.90 - UNSPECIFIED OSTEOARTHRITIS, UNSPECIFIED SITE Status: Chronic Priority: Medium Current Visit: No Qualifiers: Osteoarthritis location: multiple joints Osteoarthritis type: primary Qualified Code(s): M15.0 - Primary generalized (osteo)arthritis Annotation/Comment:: Otherwise stable by history (7) Right ankle sprain SNOMED Code(s): 90396152 Code(s): S93.401A - SPRAIN OF UNSPECIFIED LIGAMENT OF RIGHT ANKLE, INIT ENCNTR Status: Acute Current Visit: No - Problem List Review Problem List Initiated/Reviewed/Updated: Yes - Plan Plan:: 02/20/17 Brent Butler MD Recent fall at home. Right tibial plateau fracture. Inpatient hospitalized with IV toradol. Now she requires swing bed status for PT-OT. 03/12/2017 Patient is anxious to get back home. PT working with the patient, discussed with physical therapy the patient's progress. Will start to slowly advance activity with toe touch to right when up with brace on at all times. If patient develops pain with toe touch will need to make modifications with activity. Patient was in the tub and did ROM , states knee felt great in the water. XRay from 03/08/2017 reviewed. Goal to discharge the patient back to her home when physical therapist feels the patient is ready. Janice Rutherford CNP 03/22/17 Brent Butler MD Ready for discharge to home on home health and with PT.
--- NOTE | 2017-03-22 15:13 | PCM.DCSUM1 ---
Discharge Summary - Discharge Data Discharge Date: 03/22/17 Discharge Disposition: Home, W Home Health Agency 06 Condition: Good - Discharge Diagnosis/Problem(s) (1) Tibial plateau fracture, right SNOMED Code(s): 787640002 ICD Code: S82.141A - DISPLACED BICONDYLAR FRACTURE OF RIGHT TIBIA, INIT Status: Acute Priority: High Current Visit: No Onset Date: 02/16/17 Problem Details: Start to increase in activity, patient fell on 02/15/2017 Qualifiers: Encounter type: initial encounter Fracture type: closed Qualified Code(s) : S82.141A - Displaced bicondylar fracture of right tibia, initial encounter for closed fracture (2) COPD (chronic obstructive pulmonary disease) SNOMED Code(s): 77132313 ICD Code: J44.9 - CHRONIC OBSTRUCTIVE PULMONARY DISEASE, UNSPECIFIED Status : Chronic Priority: Medium Current Visit: No Problem Details: Stable by history with no recent fever or bronchitic type symptoms Qualifiers: COPD type: emphysema Emphysema type: panlobular Qualified Code(s): J43.1 - Panlobular emphysema (3) Coronary artery disease SNOMED Code(s): 88007982 ICD Code: I25.10 - ATHSCL HEART DISEASE OF [place] CORONARY ARTERY W/O ANG PCTRS Status: Chronic Priority: Medium Current Visit: No Problem Details : No recent chest pain or anginal type symptoms. Note status post previous third -degree block with multiple pacemaker placements as above Qualifiers: Coronary Disease-Associated Artery/Lesion type: [place] artery [place] vs. transplanted heart: [place] heart Associated angina: without angina Qualified Code(s): I25.10 - Atherosclerotic heart disease of [place] coronary artery without angina pectoris (4) Hypertension SNOMED Code(s): 61627290 ICD Code: I10 - ESSENTIAL (PRIMARY) HYPERTENSION Status: Chronic Priority : Medium Current Visit: No Problem Details: Continue on current blood pressure measures. Qualifiers: Hypertension type: essential hypertension Qualified Code(s): I10 - Essential (primary) hypertension (5) Mixed anxiety depressive disorder SNOMED Code(s): 458517132 ICD Code: F41.8 - OTHER SPECIFIED ANXIETY DISORDERS Status: Chronic Priority: Medium Current Visit: No Problem Details: Stable by history (6) Osteoarthritis SNOMED Code(s): 980697897 ICD Code: M19.90 - UNSPECIFIED OSTEOARTHRITIS, UNSPECIFIED SITE Status: Chronic Priority: Medium Current Visit: No Problem Details: Otherwise stable by history Qualifiers: Osteoarthritis location: multiple joints Osteoarthritis type: primary Qualified Code(s): M15.0 - Primary generalized (osteo)arthritis (7) Right ankle sprain SNOMED Code(s): 38782614 ICD Code: S93.401A - SPRAIN OF UNSPECIFIED LIGAMENT OF RIGHT ANKLE, INIT ENCNTR Status: Acute Current Visit: No - Patient Summary/Data Consults: Consultations 02/20/17 16:10 Consult to Occupational Therapy [OT Evaluation and Treatment] [CONS] Routine Consult to Physical Therapy [PT Evaluation and Treatment] [CONS] Routine 02/20/17 16:11 Care Management Consult [Consult to Case Management] [CONS] Routine Recommended Follow-up Testing/Procedures: Follow up at [facility] on THURSDAY 04/05 at 1:30pm and also for x- rays. - Patient Instructions Diet: Regular Diet as Tolerated Activity: As Tolerated Driving: Do Not Drive - Discharge Plan Prescriptions/Med Rec: amLODIPine [Norvasc] 5 mg PO Q12HR #180 tablet Fenofibrate,Micronized [Fenofibrate] 134 mg PO DAILY #90 cap Furosemide 20 mg PO DAILY #90 tablet Gabapentin [Neurontin] 100 mg PO BEDTIME #90 cap Isosorbide Mononitrate [Imdur] 30 mg PO BEDTIME #90 tab.er Levothyroxine Sodium [Levo-T] 100 mcg PO ACBREAKFAST #90 tablet Lisinopril 10 mg PO DAILY #90 tablet Metoprolol Succinate [Toprol XL] 25 mg PO DAILY #90 tab.er Omeprazole 20 mg PO BEDTIME #90 cap.cr Pravastatin [Pravachol] 20 mg PO DAILY #90 tablet Sertraline [Zoloft] 50 mg PO DAILY #90 tablet Home Medications: Home Meds Aspirin [Low Dose Aspirin EC] 81 mg PO DAILY@1800 02/16/17 [History] Cholecalciferol (Vitamin D3) [Vitamin D3] 3,000 unit PO 1200 02/16/17 [History] Vitamin E 400 unit PO DAILY@1200 02/16/17 [History] Acetaminophen [Tylenol] 650 mg PO Q4HR PRN 02/20/17 [History] Calcium Carbonate/Vitamin D3 [Caltrate 600+D 1500 MG-400 Units] 1 tab PO DAILY 02/20/17 [History] Magnesium Hydroxide [Milk of Magnesia] 30 ml PO ASDIRECTED PRN 02/20/17 [History ] Docusate Sodium [Colace] 100 mg PO BID PRN #100 cap 03/22/17 [Rx] Fenofibrate,Micronized [Fenofibrate] 134 mg PO DAILY #90 cap 03/22/17 [Rx] Furosemide 20 mg PO DAILY #90 tablet 03/22/17 [Rx] Gabapentin [Neurontin] 100 mg PO BEDTIME #90 cap 03/22/17 [Rx] Isosorbide Mononitrate [Imdur] 30 mg PO BEDTIME #90 tab.er 03/22/17 [Rx] Levothyroxine Sodium [Levo-T] 100 mcg PO ACBREAKFAST #90 tablet 03/22/17 [Rx] Lisinopril 10 mg PO DAILY #90 tablet 03/22/17 [Rx] Metoprolol Succinate [Toprol XL] 25 mg PO DAILY #90 tab.er 03/22/17 [Rx] Omeprazole 20 mg PO BEDTIME #90 cap.cr 03/22/17 [Rx] Pravastatin [Pravachol] 20 mg PO DAILY #90 tablet 03/22/17 [Rx] Sertraline [Zoloft] 50 mg PO DAILY #90 tablet 03/22/17 [Rx] amLODIPine [Norvasc] 5 mg PO Q12HR #180 tablet 03/22/17 [Rx] Referrals: Corina Cerna MD [Physician] - - Discharge Summary/Plan Comment DC Time >30 min.: No Discharge Summary/Plan Comment: 03/22/17 Home with Home Health Referral and Physical Therapy. Follow up at [facility] on Wednesday04/05/2017 at 1:30pm. Wear right knee immobilizer as per PT recommendations. - Patient Data Vitals - Most Recent: Last Vital Signs Temp 97 F 03/22/17 08:00 Pulse 64 03/22/17 08:00 Resp 17 03/22/17 08:00 BP 155/80 H 03/22/17 08:00 Pulse Ox 93 L 03/21/17 20:00 Weight - Most Recent: 136 lb 9.6 oz I&O - Last 24 hours: Intake & Output 03/21/17 03/22/17 03/22/17 22:59 06:59 14:59 Intake Total 100 720 Balance 100 720 Med Orders - Current: Current Medications Acetaminophen (Tylenol) 650 mg PO Q4HR PRN PRN Reason: Pain Last Admin: 03/15/17 20:15 Dose: 650 mg Albuterol (Proventil Neb Soln) 2.5 mg NEB Q2HR PRN PRN Reason: Dyspnea Albuterol/Ipratropium (Duoneb 3.0-0.5 Mg/3 Ml) 3 ml NEB Q4HRRT PRN PRN Reason: Dyspnea Amlodipine Besylate (Norvasc) 5 mg PO Q12HR [facility] Last Admin: 03/22/17 07:32 Dose: 5 mg Aspirin (Halfprin) 81 mg PO DAILY@1800 [facility] Last Admin: 03/21/17 18:02 Dose: 81 mg Calcium Carbonate (Caltrate 600+D 1500 Mg-400 Units) 1 tab PO DAILY [facility] Last Admin: 03/22/17 07:30 Dose: 1 tab Cholecalciferol (Vitamin D3) 3,000 units PO DAILY@1200 [facility] Last Admin: 03/22/17 12:31 Dose: 3,000 units Docusate Sodium (Colace) 100 mg PO BID PRN PRN Reason: Constipation Last Admin: 03/18/17 17:55 Dose: 100 mg Fenofibrate (Fenofibrate) 134 mg PO DAILY [facility] Last Admin: 03/22/17 07:30 Dose: 134 mg Gabapentin (Neurontin) 100 mg PO BEDTIME [facility] Last Admin: 03/21/17 19:35 Dose: 100 mg Isosorbide Mononitrate (Imdur) 30 mg PO BEDTIME [facility] Last Admin: 03/21/17 19:31 Dose: 30 mg Levothyroxine Sodium (Synthroid) 100 mcg PO ACBREAKFAST [facility] Last Admin: 03/22/17 07:30 Dose: 100 mcg Magnesium Hydroxide (Milk Of Magnesia) 30 ml PO ASDIRECTED PRN PRN Reason: Constipation Last Admin: 03/05/17 08:27 Dose: 30 ml Metoprolol Succinate (Toprol Xl) 25 mg PO DAILY [facility] Last Admin: 03/22/17 07:30 Dose: 25 mg Omeprazole (Omeprazole) 20 mg PO BEDTIME [facility] Last Admin: 03/21/17 19:27 Dose: 20 mg Pravastatin Sodium (Pravachol) 20 mg PO BEDTIME [facility] Last Admin: 03/21/17 19:27 Dose: 20 mg Sertraline HCl (Zoloft) 50 mg PO DAILY [facility] Last Admin: 03/22/17 07:32 Dose: 50 mg Temazepam (Restoril) 15 mg PO BEDTIME PRN PRN Reason: Insomnia Last Admin: 03/13/17 19:53 Dose: 15 mg Tramadol HCl (Ultram) 50 mg PO Q6H PRN PRN Reason: Pain Last Admin: 03/04/17 20:07 Dose: 50 mg Vitamin E (Vitamin E) 400 units PO DAILY@1200 [facility] Last Admin: 03/22/17 12:31 Dose: 400 units Discontinued Medications Cholecalciferol (Vitamin D3) 3,000 units PO 1200 [facility] Last Admin: 02/22/17 11:36 Dose: 3,000 units Doxazosin Mesylate (Cardura) 2 mg PO Q12HR [facility] Last Admin: 02/25/17 08:28 Dose: 2 mg Furosemide (Lasix) 20 mg PO DAILY [facility] Furosemide (Lasix) 20 mg PO DAILY@1200 [facility] Last Admin: 02/24/17 11:20 Dose: 20 mg Isosorbide Mononitrate (Imdur) 30 mg PO BEDTIME [facility] Last Admin: 02/23/17 19:07 Dose: 30 mg Isosorbide Mononitrate (Imdur) 60 mg PO BEDTIME [facility] Last Admin: 02/24/17 20:31 Dose: 60 mg Lisinopril (Prinivil) 10 mg PO DAILY [facility] Last Admin: 02/22/17 08:09 Dose: 10 mg Lisinopril (Prinivil) 10 mg PO Q12HR [facility] Last Admin: 02/24/17 07:55 Dose: 10 mg Pravastatin Sodium (Pravachol) 20 mg PO DAILY [facility] *Q Meaningful Use (DIS) - VTE *Q VTE Criteria *Q: - Stroke *Q Stroke Criteria *Q: - AMI *Q AMI Criteria *Q:
== END 2017-03-22 16:10 | disposition home health service (06) | DRG 563 ==
LOC: LL.MS 17:28
PROVIDERS: ADMIT Family Medicine; ATTEND Family Medicine
DX: S82.141A Displaced bicondylar fracture of right tibia, initial encounter for closed fracture (principal); J44.9 Chronic obstructive pulmonary disease, unspecified; I25.10 Atherosclerotic heart disease of native coronary artery without angina pectoris; F41.8 Other specified anxiety disorders; I10 Essential (primary) hypertension; M15.0 Primary generalized (osteo)arthritis; S93.401A Sprain of unspecified ligament of right ankle, initial encounter; W19.XXXA Unspecified fall, initial encounter; Y93.9 Activity, unspecified; Y92.009 Unspecified place in unspecified non-institutional (private) residence as the place of occurrence of the external cause; Z79.899 Other long term (current) drug therapy; M25.561 Pain in right knee
CPT/HCPCS: 36415; 73562-RT; 80048; 80053; 83735; 85025; 86140; 97110-GO; 97110-GP; 97116-GP; 97161-GP; 97165-GO; 97530-GO; 97530-GP; 97535-GO; A9270-GY